=== PATIENT | male | born 1975 | race African-American/Black ===

== ENCOUNTER 2016-11-28 18:32 | Emergency (ER) | payer MEDICAID ==
[~2016-11-28] VITALS: Ht 167.6 cm; Wt 99.8 kg
[~2016-11-28 18:32] MED LIST: ADIPEX-P37.5 MG PO; DICLOFENAC SOD75 MG PO; LISINOPRIL10 MG PO; MAXALT-MLT10 MG PO; MEDROL 4MG. DOSE4 MG PO; METOPROLOL50 MG PO; PROTONIX 40MG T40 MG PO; TYLENOL W/CODEI1 TA2 PO
[2016-11-28] MEDS ORDERED: TRAZADONE HYDR100 MG PO (19:01)
[2016-11-28] MEDS ORDERED: TOPIRAMATE200 MG PO (19:01)
[2016-11-28] MEDS ORDERED: AMITRIPTYLINE 550 MG PO (19:02)
[2016-11-28] MEDS ORDERED: DULOXETINE60 MG PO (19:02)
[2016-11-28] MEDS ORDERED: VITAMIN D32000 IU PO (19:02)
[2016-11-28] MEDS ORDERED: HYDROXYZINE PAM50 MG PO (19:03)
--- OUTSIDE RECORDS SUMMARY | 2016-11-28 19:04 | External Medical Summary Rpt ---
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, Unavailable Unavailable [facility] Unavailable Unavailable [facility], [facility] Unavailable Unavailable [facility], [facility] Ernst Leblanc MD, Unavailable Unavailable Ernst HALL, PETTEBladimir Unavailable Unavailable JEFF SAVAGE Unavailable Unavailable SHOJAEI-JUAN Unavailable Unavailable JAL, SHOJAEI-JUAN JINA DEE Unavailable Unavailable STONE, STONE Unavailable Unavailable [facility], [facility] Unavailable Unavailable [facility] Unavailable Unavailable [facility], [facility], Unavailable Unavailable [facility] Unavailable [place] [facility], [facility] TIMMONS HUYEN, TIMMONS Unavailable Unavailable HUYEN LIZETT, LIZETT Unavailable Unavailable LIZETT CHR, LIZETT CHR Unavailable Unavailable Purpose Continuity of Care Document - 05-24-2012 through 2016 Problems Code Diagnosis DOS Provider Status [id number] PAIN IN 10-03-2016 [facility]EE [facility] R05 COUGH 08-14-2016 [facility] A86 UNSPECIFIED 07-10-2016 [facility] S G053 ENCEPHALITI 07-10-2016 [facility] MARION JONES CLASS ELSEW G932 BENIGN 07-10-2016 [facility] HYPERTENSIO N [id number] MYOPIA 07-10-2016 [facility] R51 HEADACHE 07-10-2016 [facility] E559 VITAMIN D 04-03-2016 [facility] UNSPECIFIED INTER [id number] ENCEPHALITI 04-03-2016 [facility] ENCEPHALOMY INTER ELITIS UNSPECIFIED G08 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 NOT PHYSICIANS SPECIFIED GROUP ACUTE OR CHRONIC R5383 OTHER 02-29-2016 [facility] FATIGUE [facility] [id number] PAIN IN 01-14-2016 [facility] RIGHT ELBOW PH[facility] GROUP R200 ANESTHESIA 01-14-2016 [facility] OF SKIN [facility] Z23 ENCOUNTER 01-14-2016 [facility] IMMUNIZATIO GROUP N Z5181 ENCOUNTER 12-17-2015 [place] THERAPEUTIC INC DRUG LEVEL MONITORING Z111 ENCOUNTER 12-15-2015 PSYCHIATRIC RESPIRATORY TUBERCULOSI S [id number] UNSPECIFIED 11-30-2015 [facility] SUPERFICIAL KERATITIS LEFT EYE G4733 OBSTRUCTIVE 11-22-2015 [facility] SLEEP PHYSICIANS APNEA ADULT GROUP PEDIATRIC R202 PARESTHESIA 11-22-2015 [facility] OF SKIN [facility] GROUP I669 OCCLUSION & 11-18-2015 [facility] UNSPEC[facility] INC CEREBRAL ARTERY K649 UNSPECIFIED 09-27-2015 [facility] HEMORRHOIDS GROUP R197 DIARRHEA 09-27-2015 [facility] UNSPECIFIED PHYSICIANS GROUP R079 CHEST PAIN 09-06-2015 [place] [facility]PEC[facility] M778 OTHER 08-26-2015 [facility] ENTHESOPATH PHYSICIANS IES NOT GROUP ELSEWHERE CLASSIFIED M7030 OTHER 08-20-2015 [facility] EL[facility] INC UNSPECIFIED ELBOW M7989 OTHER 08-20-2015 [place] SPECIFIED MEDICAL SOFT TISSUE IMAGING ASS DISORDERS R609 EDEMA 08-20-2015 [place] [facility]PEC[facility]IED [facility] 401.9 401.9 05-08-2013 [place] HYPERTENSIO [facility] 784.0 784.0 05-08-2013 [place] HEADACHE [facility] R07.9 CHEST PAIN, UNSPECIFIED R11.10 VOMITING, UNSPECIFIED R51 HEADACHE S50.00XA CONTUSION OF UNSPECIFIED ELBOW, INITIAL ENCOUNTER Allergies, Adverse Reactions, Alerts Type Allergy to substance Food Allergy Adverse Reaction to Substance Substance Reaction Severity VERSED Unknown Unknown Chocolate I-ITCHING Unknown Medications Na ND Rx Da Fi Fi Am Da Di Ph RX Ph St me C No te ll ll ou ys ag ar # ys at rm s nt no ma ic us Or Da si cy ia de te s n re d LI 68 07 08 90 90 00 HO Ac SI 18 -1 -0 .0 00 ME ti NO 00 2- 4- 00 06 TO ve [place] 51 20 20 09 WN [place] 90 17 17 05 -H [address] AR Z MA 20 CY -1 2. OF 5 MG CY NT TA HI B AN A ME 68 07 08 21 6 00 HO Ac TH 00 -0 -0 .0 00 ME ti YL 10 7- 4- 00 06 TO ve [place] 00 20 20 09 WN ED 50 17 17 03 NI 1 49 PH SO AR LO MA NE CY 4 OF MG CY DO NT SE HI PK AN A 00 06 07 30 30 00 HO Ac TA 53 -3 -2 .0 00 ME ti ND 63 0- 8- 00 06 TO ve N 79 20 20 07 WN D3 00 17 17 78 1 52 PH 2, AR 00 MA 0 CY UN IT OF SO CY FT NT GE HI L AN A PA 31 06 07 30 30 00 HO Ac NT 72 -3 -2 .0 00 ME ti OP 20 0- 8- 00 06 TO ve RA 71 20 20 07 WN ZO 39 17 17 78 LE 0 22 PH AR SO MA D CY DR OF 40 CY MG NT HI TA AN B A TR 50 06 07 30 30 00 HO Ac AZ 11 -3 -2 .0 00 ME ti OD 10 0- 8- 00 06 TO ve ON 43 20 20 08 WN E 40 17 17 44 10 2 30 PH 0 AR MG MA CY TA BL OF ET CY NT HI AN A AM 00 06 07 30 30 00 HO Ac IT 78 -3 -2 .0 00 ME ti RI 11 0- 8- 00 06 TO ve PT 48 20 20 08 WN YL 80 17 17 47 IN 1 69 PH E AR HC MA L CY 50 OF MG CY TA NT B HI AN A DU 68 06 07 30 30 00 HO Ac LO 00 -2 -1 .0 00 ME ti XE 10 0- 4- 00 06 TO ve TI 25 20 20 08 WN NE 70 17 17 47 4 67 PH HC AR L MA DR CY 60 OF MG CY NT CA HI P AN A TO 68 06 06 30 30 00 HO Ac PI 46 -0 -3 .0 00 ME ti RA 20 2- 0- 00 06 TO ve MA 11 20 20 08 WN TE 06 17 17 47 0 68 PH 20 AR 0 MA MG CY TA OF BL ET CY NT HI AN A PA 62 06 06 30 30 00 HO Ac NT 17 -0 -3 .0 00 ME ti OP 50 2- 0- 00 06 TO ve RA 61 20 20 07 WN ZO 74 17 17 78 LE 3 22 PH AR SO MA D CY DR OF 40 CY MG NT HI TA AN B A AM 00 05 06 30 30 00 HO Ac IT 78 -3 -2 .0 00 ME ti RI 11 1- 3- 00 06 TO ve PT 48 20 20 06 WN YL 80 17 17 62 IN 1 18 PH E AR HC MA L CY 50 OF MG CY TA NT B HI AN A TR 50 05 06 30 30 00 HO Ac AZ 11 -3 -2 .0 00 ME ti OD 10 1- 3- 00 06 TO ve ON 43 20 20 08 WN E 40 17 17 44 10 2 30 PH 0 AR MG MA CY TA BL OF ET CY NT HI AN A 00 05 06 30 30 00 HO Ac TA 53 -2 -2 .0 00 ME ti ND 63 5- 3- 00 06 TO ve N 79 20 20 07 WN D3 00 17 17 78 1 52 PH 2, AR 00 MA 0 CY UN IT OF SO CY FT NT GE HI L AN A DU 68 05 06 30 30 00 HO Ac LO 00 -1 -0 .0 00 ME ti XE 10 7- 9- 00 06 TO ve TI 25 20 20 08 WN NE 70 17 17 47 4 67 PH HC AR L MA DR CY 60 OF MG CY NT CA HI P AN A TO 68 05 06 30 30 00 HO Ac PI 46 -0 -0 .0 00 ME ti RA 20 9- 2- 00 06 TO ve MA 11 20 20 08 WN TE 06 17 17 47 0 68 PH 20 AR 0 MA MG CY TA OF BL ET CY NT HI AN A PA 62 05 06 30 30 00 HO Ac NT 17 -0 -0 .0 00 ME ti OP 50 9- 2- 00 06 TO ve RA 61 20 20 07 WN ZO 74 17 17 78 LE 3 22 PH AR SO MA D CY DR OF 40 CY MG NT HI TA AN B A ME 68 05 05 21 6 00 HO Ac TH 00 -0 -2 .0 00 ME ti YL 10 1- 6- 00 06 TO ve [place] 00 20 20 08 WN ED 50 17 17 61 NI 1 31 PH SO AR LO MA NE CY 4 OF MG CY DO NT SE HI PK AN A BE 69 05 05 30 10 00 HO Ac NZ 38 -0 -2 .0 00 ME ti ON 70 1- 6- 00 06 TO ve AT 12 20 20 08 WN AT 00 17 17 61 E 5 30 PH 20 AR 0 MA MG CY CA OF PS UL CY E NT HI AN A TR 50 05 05 30 30 00 HO Ac AZ 11 -0 -2 .0 00 ME ti OD 10 1- 6- 00 06 TO ve ON 43 20 20 08 WN E 40 17 17 44 10 2 30 PH 0 AR MG MA CY TA BL OF ET CY NT HI AN A AM 00 05 05 30 30 00 HO Ac IT 78 -0 -2 .0 00 ME ti RI 11 1- 6- 00 06 TO ve PT 48 20 20 06 WN YL 80 17 17 62 IN 1 18 PH E AR HC MA L CY 50 OF MG CY TA NT B HI AN A ME 57 04 05 18 90 00 HO Ac TO 23 -1 -0 0. 00 ME ti [place] 70 0- 5- 00 06 TO ve OL 10 20 20 0 08 WN OL 19 17 17 47 9 71 PH TA AR RT MA RA CY TE OF 50 CY MG NT HI TA AN B A LI 68 04 05 90 90 00 HO Ac SI 18 -1 -0 .0 00 ME ti NO 00 0- 5- 00 06 TO ve [place] 51 20 20 08 WN [place] 90 17 17 47 -H [address] AR Z MA 20 CY -1 2. OF 5 MG CY NT TA HI B AN A TO 68 04 05 30 30 00 HO Ac PI 46 -1 -0 .0 00 ME ti RA 20 0- 5- 00 06 TO ve MA 11 20 20 08 WN TE 06 17 17 47 0 68 PH 20 AR 0 MA MG CY TA OF BL ET CY NT HI AN A DU 68 04 05 30 30 00 HO Ac LO 00 -1 -0 .0 00 ME ti XE 10 1- 5- 00 06 TO ve TI 25 20 20 08 WN NE 70 17 17 47 4 67 PH HC AR L MA DR CY 60 OF MG CY NT CA HI P AN A PA 62 03 04 30 30 00 HO Ac NT 17 -3 -2 .0 00 ME ti OP 50 1- 8- 00 06 TO ve RA 61 20 20 07 WN ZO 74 17 17 78 LE 3 22 PH AR SO MA D CY DR OF 40 CY MG NT HI TA AN B A AM 00 03 04 30 30 00 HO Ac IT 78 -3 -2 .0 00 ME ti RI 11 1- 8- 00 06 TO ve PT 48 20 20 06 WN YL 80 17 17 62 IN 1 18 PH E AR HC MA L CY 50 OF MG CY TA NT B HI AN A TO 68 04 04 30 30 00 HO Ac PI 46 -0 -2 .0 00 ME ti RA 20 3- 8- 00 06 TO ve MA 10 20 20 08 WN TE 96 17 17 43 0 75 PH 10 AR 0 MA MG CY TA OF BL ET CY NT HI AN A TR 50 04 04 30 30 00 HO Ac AZ 11 -0 -2 .0 00 ME ti OD 10 4- 8- 00 06 TO ve ON 43 20 20 08 WN E 40 17 17 44 10 2 30 PH 0 AR MG MA CY TA BL OF ET CY NT HI AN A TR 50 02 03 30 30 00 HO Ac AZ 11 -2 -2 .0 00 ME ti OD 10 7- 4- 00 06 TO ve ON 43 20 20 08 WN E 40 17 17 22 10 2 12 PH 0 AR MG MA CY TA BL OF ET CY NT HI AN A VE 68 02 03 60 30 00 HO Ac NL 00 -2 -2 .0 00 ME ti AF 10 7- 4- 00 06 TO ve AX 15 20 20 08 WN IN 80 17 17 22 E 0 07 PH HC AR L MA 37 CY .5 OF MG CY TA NT BL HI ET AN A 00 02 03 30 30 00 HO Ac TA 53 -2 -2 .0 00 ME ti ND 63 7- 4- 00 06 TO ve N 79 20 20 07 WN D3 00 17 17 78 1 52 PH 2, AR 00 MA 0 CY UN IT OF SO CY FT NT GE HI L AN A DI 49 02 03 30 30 00 HO Ac CL 88 -1 -1 0. 00 ME ti OF 40 6- 7- 00 06 TO ve EN 93 20 20 0 06 WN AC 54 17 17 34 7 98 PH SO AR DI MA UM CY 1% OF GE CY L NT HI AN A PA 62 02 03 30 30 00 HO Ac NT 17 -1 -1 .0 00 ME ti OP 50 5- 0- 00 06 TO ve RA 61 20 20 07 WN ZO 74 17 17 78 LE 3 22 PH AR SO MA D CY DR OF 40 CY MG NT HI TA AN B A TO 68 02 03 30 30 00 HO Ac PI 46 -1 -1 .0 00 ME ti RA 20 5- 0- 00 06 TO ve MA 10 20 20 07 WN TE 96 17 17 65 0 75 PH 10 AR 0 MA MG CY TA OF BL ET CY NT HI AN A AM 00 02 03 30 30 00 HO Ac IT 78 -1 -1 .0 00 ME ti RI 11 5- 0- 00 06 TO ve PT 48 20 20 06 WN YL 80 17 17 62 IN 1 18 PH E AR HC MA L CY 50 OF MG CY TA NT B HI AN A TR 50 01 02 30 30 00 HO Ac AZ 11 -2 -2 .0 00 ME ti OD 10 6- 4- 00 06 TO ve ON 43 20 20 08 WN E 40 17 17 02 10 2 82 PH 0 AR MG MA CY TA BL OF ET CY NT HI AN A 00 01 02 30 30 00 HO Ac TA 53 -2 -2 .0 00 ME ti ND 63 6- 4- 00 06 TO ve N 79 20 20 07 WN D3 00 17 17 78 1 52 PH 2, AR 00 MA 0 CY UN IT OF SO CY FT NT GE HI L AN A VE 68 01 02 60 30 00 HO Ac NL 00 -2 -1 .0 00 ME ti AF 10 3- 7- 00 06 TO ve AX 15 20 20 07 WN IN 80 17 17 39 E 0 05 PH HC AR L MA 37 CY .5 OF MG CY TA NT BL HI ET AN A LI 68 01 02 90 90 00 HO Ac SI 18 -2 -1 .0 00 ME ti NO 00 3- 7- 00 06 TO ve [place] 51 20 20 07 WN IL 40 17 17 21 3 58 PH 10 AR MA MG CY TA OF BL ET CY NT HI AN A AM 00 01 02 30 30 00 HO Ac IT 78 -1 -0 .0 00 ME ti RI 11 1- 3- 00 06 TO ve PT 48 20 20 06 WN YL 80 17 17 62 IN 1 18 PH E AR HC MA L CY 50 OF MG CY TA NT B HI AN A PA 62 01 02 30 30 00 HO Ac NT 17 -1 -0 .0 00 ME ti OP 50 1- 3- 00 06 TO ve RA 61 20 20 07 WN ZO 74 17 17 78 LE 3 22 PH AR SO MA D CY DR OF 40 CY MG NT HI TA AN B A TR 50 12 30 30 00 HO Ac AZ 11 -3 -2 .0 00 ME ti OD 10 0- 7- 00 06 TO ve ON 43 20 20 07 WN E 40 16 17 39 10 2 09 PH 0 AR MG MA CY TA BL OF ET CY NT HI AN A TO 68 12 30 30 00 HO Ac PI 46 -3 -2 .0 00 ME ti RA 20 0- 7- 00 06 TO ve MA 10 20 20 07 WN TE 96 16 17 65 0 75 PH 10 AR 0 MA MG CY TA OF BL ET CY NT HI AN A 00 12 01 30 30 00 HO Ac TA 53 -1 -1 .0 00 ME ti ND 63 9- 3- 00 06 TO ve N 79 20 20 07 WN D3 00 16 17 78 1 52 PH 2, AR 00 MA 0 CY UN IT OF SO CY FT NT GE HI L AN A PA 62 12 01 30 30 00 HO Ac NT 17 -1 -1 .0 00 ME ti OP 50 6- 3- 00 06 TO ve RA 61 20 20 07 WN ZO 74 16 17 78 LE 3 22 PH AR SO MA D CY DR OF 40 CY MG NT HI TA AN B A AM 00 12 30 30 00 HO Ac IT 78 -1 -0 .0 00 ME ti RI 11 2- 9- 00 06 TO ve PT 48 20 20 06 WN YL 80 16 17 62 IN 1 18 PH E AR HC MA L CY 50 OF MG CY TA NT B HI AN A VE 68 12 01 60 30 00 HO Ac NL 00 -1 -0 .0 00 ME ti AF 10 2- 9- 00 06 TO ve AX 15 20 20 07 WN IN 80 16 17 39 E 0 05 PH HC AR L MA 37 CY .5 OF MG CY TA NT BL HI ET AN A SO 00 01 0 No DI 40 -2 UM 97 3- Lo 98 20 ng CH 30 14 er LO 9 RI Ac DE ti ve 0. 9% SO MARNI TI ON Sa 63 01 0 No li 80 -2 ne 70 3- Lo 10 20 ng Fl 07 14 er us 5 h Ac 10 ti ML ve Sy ri ng e KE 00 01 0 No TO 40 -2 RO 93 3- Lo LA 79 20 ng C 50 14 er 30 1 Ac MG ti /M ve L AL ON 00 01 0 No DA 64 -2 NS 16 3- Lo ET 08 20 ng RO 02 14 er N 5 HC Ac L ti 4 ve MG /2 ML AL DI 00 01 0 No PH 40 -2 EN 92 3- Lo HY [address] 03 14 er AM 1 IN Ac E ti 50 ve MG /M L SY RN G ME 00 01 0 No TO 40 -2 CL 93 3- Lo OP 41 20 ng RA 40 14 er ND 1 DE Ac ti 10 ve MG /2 ML AL Immunization Name Date Rout CVX Reac Dose Comm Prov Is Faci e tion ent ider Refu lity Give sed n HEPB 09-3 8 FRYM No [facility]H 0-20 AN PHYS VACC 16 EUG ICIA INE NS PED/ GROU ADOL P ESC 3 DOSE SCHE DULE IM HEPB 08-3 8 FRYM No BEBE 1-20 AN DANIELLA VACC 16 EUG INE [facility] PED/ RIAL ADOL ESC HOSP 3 ITAL DOSE SCHE DULE IM Vital Signs 05-08-2013 01:40 Name Value Interpretat Reference Comment ion Range BP 82 mm[Hg] Diastolic BP Systolic 140 mm[Hg] Heart 82 /min Rate/Pulse O2% 96 % Respiratory 18 /min Rate 05-08-2013 00:28 Name Value Interpretat Reference Comment ion Range BP 98 mm[Hg] Diastolic BP Systolic 151 mm[Hg] Heart 93 /min Rate/Pulse O2% 97 % Respiratory 18 /min Rate Results Labs Lab Lab Date Result Refere Interp Status Commen Order Detail nces retati t Range on Hemoglobin A1c in Blood (11-09-2016 08:24) Hemoglo 6.5 % 0.0% Normal complet bin A1c 017 - ed in 08:24 7.0% Blood COMPREHENSIVE METABOLIC PANEL (05-08-2013 00:13) Glucose 130 74-106 complet 014 mg/dL ed Bld-mCn 00:13 c BUN 10 7-18 complet Bld-mCn 014 mg/dL ed c 00:13 Creat 1.2 0.8-1.3 complet SerPl-m 014 mg/dL ed Cnc 00:13 Creat 119 50-200 complet Cl 014 ML/MIN ed predict 00:13 ed SerPl C-G-vRa te GFR/BSA 68 Greater complet .pred 014 ML/MIN than ed SerPl 00:13 60 Schwart z-vRate Sodium 139 136-145 complet SerPl-s 014 mmoL/L ed Cnc 00:13 Potassi 4.1 3.5-5.1 complet um 014 mmoL/L ed SerPl-s 00:13 Cnc Chlorid 101 98-107 complet e 014 mmoL/L ed SerPl-s 00:13 Cnc CO2 29 21.0-32 complet SerPl-s 014 mmoL/L .0 ed Cnc 00:13 Calcium 8.0 8.5-10. complet 014 mg/dL 1 ed SerPl-m 00:13 Cnc Prot 7.7 6.4-8.2 complet SerPl-m 014 gm/dL ed Cnc 00:13 Albumin 3.7 3.4-5.0 complet 014 gm/dL ed SerPl-m 00:13 Cnc Globuli 4.0 1.3-3.2 complet n 014 gm/dL ed Ser-mCn 00:13 c Albumin 0.9 UNK 1.1-1.8 complet /Glob 014 ed SerPl-m 00:13 Rto Bilirub 0.5 0.2-1.0 complet 014 mg/dL ed SerPl-m 00:13 Cnc AST 22 U/L 15-37 complet SerPl-c 014 ed Cnc 00:13 ALT 25 U/L 12-78 complet SerPl-c 014 ed Cnc 00:13 ALP 92 U/L 50-136 complet SerPl-c 014 ed Cnc 00:13 CBC with AUTO DIFF (05-08-2013 00:13) WBC # 05-08-2 10.2 4.8-10. complet Bld 014 K/MM3 8 ed Auto 00:13 RBC # 05-08-2 5.35 4.6-6.2 complet Bld 014 M/mm3 ed Auto 00:13 Hgb 05-08-2 15.0 14.1-18 complet Bld-mCn 014 g/dL .0 ed c 00:13 Hct Fr 2 45.2 % 42.0-52 complet Bld 014 .0 ed 00:13 MCV RBC 84.5 fl 82.2-97 complet 014 .8 ed 00:13 MCH RBC 2 28.1 pg 27-31.2 complet Qn 014 ed Auto 00:13 MEAN 2 33.2 31.8-35 complet CORPUSC 014 g/dl .4 ed ULAR 00:13 HGB CONC RDW RBC 05-08-2 14.8 % 11.5-17 complet Auto 014 .5 ed 00:13 Platele 05-08-2 302 142-424 complet t Bld 014 K/mm3 ed Ql 00:13 Manual MEAN 8.5 fl 7.4-10. complet PLATELE 014 4 ed T 00:13 VOLUME Granulo 05-08-2 55.8 % 37.0-80 complet cytes 014 .0 ed Fr Bld 00:13 Auto LYMPH % 23-2 37.8 % 10-50 complet 014 ed 00:13 Monocyt -23-2 3.8 % 1.7-9.3 complet es Fr 014 ed Bld 00:13 Auto Eosinop -23-2 1.9 % 0.1-12. complet hil Fr 014 0 ed Bld 00:13 Auto Basophi -23-2 0.7 % 0.1-2.0 complet ls Fr 014 ed Bld 00:13 Auto Granulo -23-2 5.7 1.3-8.0 complet cytes # 014 K/mm3 ed Bld 00:13 Auto Lymphoc -23-2 3.9 0.7-4.5 complet ytes Fr 014 K/mm3 ed Bld 00:13 Auto Monocyt -23-2 0.4 0.1-1.0 complet es # 014 K/mm3 ed Bld 00:13 Auto Eosinop -23-2 0.2 0.0-0.4 complet hil # 014 K/mm3 ed Bld 00:13 Auto Basophi 0.1 0-0.2 complet ls # 014 K/MM3 ed Bld 00:13 Auto COMPREHENSIVE METABOLIC PANEL CMP (07-15-2012 07:01) TOTAL 07-15- 0.4 0.20 - complet WILLIAM 013 mg/dl 1.0 ed 07:01 ALBUMIN 3.5 3.40 - complet 013 g/dl 5.0 ed 07:01 TOTAL 7.0 6.40 - complet PROTEIN 013 g/dl 8.20 ed 07:01 ALK 89 IU/L 50 - complet PHOS 013 136 ed 07:01 ALT 35 IU/L 30 - 65 complet (SGPT) 013 ed 07:01 AST 15 IU/L 15 - 37 complet (SGOT) 013 ed 07:01 04 If complet 013 patient ed 07:01 is Tena n, multipl y GFR by 1.120. Normal complet 013 Range: ed 07:01 60 Ml/min/ 1.73 sq meters GLOMERU complet 013 LAR ed 07:01 FILTRAT ION RATE INTERPR ETATION A/G 1.0 1.0 - complet RATIO 013 ratio 3.90 ed 07:01 GLOBULI 3.5 1.30 - complet N 013 g/dl 3.50 ed 07:01 CALCIUM 8.7 8.50 - complet 013 mg/dl 10.10 ed 07:01 GFR 60 complet 013 ml/min ed 07:01 AGE 04-01- 36 yrs complet 013 ed 07:01 CREATIN 1.2 0.60 - complet INE 013 mg/dl 1.30 ed 07:01 BUN 7 mg/dl 7 - 18 complet 013 ed 07:01 GLUCOSE 106 70 - complet 013 mg/dl 120 ed 07:01 ANION 10 5 - 15 complet GAP 013 mmol/L ed 07:01 TOTAL 29 21 - 32 complet CO2 013 mmol/L ed 07:01 POTASSI 4.0 3.50 - complet UM 013 mmol/L 5.10 ed 07:01 SODIUM 139 136 - complet 013 mmol/L 145 ed 07:01 CHLORID 104 98 - complet E 013 mmol/L 107 ed 07:01 *GFR complet 013 only ed 07:01 applies to adults over the age 18. BILIRUBIN DIRECT (07-15-2012 07:01) DIRECT 0.1 0.0 - complet WILLIAM 013 mg/dl 0.20 ed 07:01 CBC W DIFF AUTOMATED (07-15-2012 07:01) EO# 07-15- 0.12 0.00 - complet 013 K/uL 0.70 ed 07:01 NE# 2.76 2.00 - complet 013 K/uL 6.90 ed 07:01 MO# 0.27 0.00 - complet 013 K/uL 0.90 ed 07:01 LY# 2.16 0.60 - complet 013 K/uL 3.40 ed 07:01 BA% 0.90 % 0.00 - complet 013 2.50 ed 07:01 EO% 2.20 % 0.00 - complet 013 7.00 ed 07:01 NE% 51.6 % 37.0 - complet 013 80.0 ed 07:01 MO% 5.0 % 0.0 - complet 013 12.0 ed 07:01 LY% 40.3 % 10.0 - complet 013 50.0 ed 07:01 PLT 331 142 - complet 013 K/uL 424 ed 07:01 RDW 13.7 % 11.60 - complet 013 14.80 ed 07:01 MCHC 32.6 31.80 - complet 013 g/dL 35.40 ed 07:01 MCH 26.7 pg 27.0 - Below complet 013 31.20 low ed 07:01 normal MCV 82.0 fL 80.0 - complet 013 97.0 ed 07:01 HCT 44 % 37.70 - complet 013 53.70 ed 07:01 HGB 14.2 12.20 - complet 013 g/dL 18.10 ed 07:01 RBC 5.32 4.04 - complet 013 M/uL 6.13 ed 07:01 WBC 5.4 4.60 - complet 013 K/uL 10.20 ed 07:01 Manual NOT complet Diff 013 INDICAT ed 07:01 ED BA# 0.05 0.00 - complet 013 K/uL 0.20 ed 07:01 Comprehensive metabolic 1998 panel in Serum or Plasma (07-15-2012 07:01) Sodium 139 136 - complet [Moles/ 013 mmol/L 145 ed volume] 07:01 in Serum or Plasma Potassi 4.0 3.50 - complet um 013 mmol/L 5.10 ed [Moles/ 07:01 volume] in Serum or Plasma Chlorid 104 98 - complet e 013 mmol/L 107 ed [Moles/ 07:01 volume] in Serum or Plasma TOTAL 29 21 - 32 complet CO2 013 mmol/L ed 07:01 ANION 10 5 - 15 complet GAP 013 mmol/L ed 07:01 Glucose 106 70 - complet 013 mg/dl 120 ed [Mass/v 07:01 olume] in Serum or Plasma Urea 7 mg/dl 7 - 18 complet nitroge 013 ed n 07:01 [Mass/v olume] in Serum or Plasma Creatin 1.2 0.60 - complet ine 013 mg/dl 1.30 ed [Mass/v 07:01 olume] in Serum or Plasma AGE 04 36 yrs complet 013 ed 07:01 GFR 60 complet 013 ml/min ed 07:01 Calcium 8.7 8.50 - complet 013 mg/dl 10.10 ed [Mass/v 07:01 olume] in Serum or Plasma Bilirub 0.4 0.20 - complet in.tota 013 mg/dl 1.0 ed l 07:01 [Mass/v olume] in Serum or Plasma Asparta 15 IU/L 15 - 37 complet te 013 ed aminotr 07:01 ansfera se [Enzyma tic activit y/volum e] in Serum or Plasma Alanine 35 IU/L 30 - 65 complet 013 ed aminotr 07:01 ansfera se [Enzyma tic activit y/volum e] in Serum or Plasma Alkalin 89 IU/L 50 - complet e 013 136 ed phospha 07:01 tase [Enzyma tic activit y/volum e] in Serum or Plasma Protein 7.0 6.40 - complet 013 g/dl 8.20 ed [Mass/v 07:01 olume] in Serum or Plasma Albumin 3.5 3.40 - complet 013 g/dl 5.0 ed [Mass/v 07:01 olume] in Serum or Plasma GLOBULI 3.5 1.30 - complet N 013 g/dl 3.50 ed 07:01 A/G 1.0 1.0 - complet RATIO 013 ratio 3.90 ed 07:01 GLOMERU complet 013 LAR ed 07:01 FILTRAT ION RATE INTERPR ETATION Normal complet 013 Range: ed 07:01 60 Ml/min/ 1.73 sq meters If complet 013 patient ed 07:01 is Tena n, multipl y GFR by 1.120. *GFR complet 013 only ed 07:01 applies to adults over the age 18. Bilirubin.direct [Mass/volume] in Serum or Plasma (07-15-2012 07:01) Bilirub 0.1 0.0 - complet in.dire 013 mg/dl 0.[address] 07:01 [Mass/v olume] in Serum or Plasma Urinalysis complete panel in Urine (07-15-2012 07:01) Color LT. NL: complet of 013 YELL Negativ ed Urine 07:01 e Appeara CLEAR NL: complet nce of 013 Negativ ed Urine 07:01 e Glucose NEG NL: complet 013 Negativ ed [Mass/v 07:01 e olume] in Urine by Test strip Bilirub NEG NL: complet in 013 Negativ ed [Presen 07:01 e ce] in Urine by Test strip Ketones NEG NL: complet 013 Negativ ed [Presen 07:01 e ce] in Serum or Plasma Specifi >=1.030 NL: complet c 013 1.00 >= ed gravity 07:01 1.030 of Urine Hemoglo NEG NL: complet bin 013 Negativ ed [Presen 07:01 e ce] in Urine by Test strip pH of 6.0 NL: complet Urine 013 ed by Test 07:01 strip Protein NEG NL: complet 013 Negativ ed [Presen 07:01 e ce] in Urine by Test strip Urobili 0.2 NL: 0.2 complet nogen 013 - 1.0 ed [Mass/v 07:01 olume] in Urine by Test strip Nitrite NEG NL: complet 013 Negativ ed [Presen 07:01 e ce] in Urine by Test strip Leukocy NEG NL: complet chito 013 Negativ ed [#/volu 07:01 e me] in Blood by Automat ed count MICROSC See complet OPIC 013 ed 07:01 Leukocy NEGATIV NL: complet chito 013 E NEGATIV ed [#/volu 07:01 E me] in Blood by Automat ed count Erythro NEGATIV NL: complet cytes 013 E NEGATIV ed [#/volu 07:01 E me] in Blood by Automat ed count Epithel NEGATIV NL: complet ial 013 E NEGATIV ed cells 07:01 E [#/area ] in Urine sedimen t by Microsc opy high power field Bacteri NEGATIV NL: complet a 013 E NEGATIV ed [#/area 07:01 E ] in Urine sedimen t by Microsc opy high power field Mucus NEGATIV NL: complet [Presen 013 E NEGATIV ed ce] in 07:01 E Urine sedimen t by Light microsc opy Yeast NEGATIV NL: complet [Presen 013 E NEGATIV ed ce] in 07:01 E Unspeci fied specime n by Wet prepara tion Casts NEGATIV NL: complet 013 E NEGATIV ed 07:01 E Crystal NEGATIV NL: complet s 013 E NEGATIV ed [type] 07:01 E in Urine sedimen t by Light microsc opy METH OF C CATCH complet DIANE 013 ed 07:01 CULTURE NOT complet SETUP 013 INDIC ed 07:01 CBC W DIFF AUTOMATED (07-15-2012 07:01) Leukocy 5.4 4.60 - complet chito 013 K/uL 10.20 ed [#/volu 07:01 me] in Blood by Automat ed count Erythro 5.32 4.04 - complet cytes 013 M/uL 6.13 ed [#/volu 07:01 me] in Blood by Automat ed count Hemoglo 14.2 12.20 - complet bin 013 g/dL 18.10 ed [Mass/v 07:01 olume] in Blood Hematoc 44 % 37.70 - complet rit 013 53.70 ed [Volume 07:01 Fractio n] of Blood by Automat ed count Erythro 82.0 fL 80.0 - complet cyte 013 97.0 ed mean 07:01 corpusc ular volume [Entiti c volume] by Automat ed count Erythro 26.7 pg 27.0 - Low complet cyte 013 31.20 ed mean 07:01 corpusc ular hemoglo bin [Entiti c mass] by Automat ed count Erythro 32.6 31.80 - complet cyte 013 g/dL 35.40 ed mean 07:01 corpusc ular hemoglo bin concent ration [Mass/v olume] by Automat ed count Erythro 13.7 % 11.60 - complet cyte 013 14.80 ed distrib 07:01 ution width [Ratio] by Automat ed count Platele 331 142 - complet ts 013 K/uL 424 ed [#/volu 07:01 me] in Blood by Automat ed count Lymphoc 40.3 % 10.0 - complet ytes/10 013 50.0 ed 0 07:01 leukocy chito in Blood by Automat ed count Monocyt 5.0 % 0.0 - complet es/100 013 12.0 ed leukocy 07:01 chito in Blood by Automat ed count Neutrop 51.6 % 37.0 - complet hils.ba 013 80.0 ed nd 07:01 form/10 0 leukocy chito in Blood by Manual count Eosinop 2.20 % 0.00 - complet hils/10 013 7.00 ed 0 07:01 leukocy chito in Blood by Automat ed count Basophi 0.90 % 0.00 - complet ls/100 013 2.50 ed leukocy 07:01 chito in Blood by Automat ed count Lymphoc 2.16 0.60 - complet ytes/10 013 K/uL 3.40 ed 0 07:01 leukocy chito in Blood by Automat ed count Monocyt 0.27 0.00 - complet es/100 013 K/uL 0.90 ed leukocy 07:01 chito in Blood by Automat ed count Neutrop 2.76 2.00 - complet hils.ba 013 K/uL 6.90 ed nd 07:01 form/10 0 leukocy chito in Blood by Manual count Eosinop 0.12 0.00 - complet hils/10 013 K/uL 0.70 ed 0 07:01 leukocy chito in Blood by Automat ed count Basophi 0.05 0.00 - complet ls/100 013 K/uL 0.20 ed leukocy 07:01 chito in Blood by Automat ed count Manual NOT complet Diff 013 INDICAT ed 07:01 ED Procedures Procedure DOS Code Location Performer Comment ARTHROCEN [facility] STONE TESIS 7 PHYSICIAN ASPIR&/IN S GROUP J MAJOR JT/BURSA W/O US VISUAL 77735 [facility] FIELD XM 7 MEDICAL UNI/BI SERV W/INTERP FOUNDATIO EXTENDED N EXAM SENSORMOT 30699 [facility] LE[facility] OR XM 7 MEDICAL W/DISPENSING AND MEASURING OPTICIAN SERV GUILLERMO FOUNDATIO OCULAR N DEVIJ W/I&R SPX BLOOD 17553 [facility] 6 [facility] COMPLETE INC INC AUTO&AUTO DIFRNTL WBC INJECTION J0696 [facility] DENIA 6 PHYSICIAN FATUMA CEFTRIAXO S GROUP NE SODIUM PER 250 MG THERAPEUT 15983 [facility] IC 6 PHYSICIAN PHYSICIAN PROPHYLAC S GROUP S GROUP TIC/DX INJECTION SUBQ/IM COLLECTIO 16333 [facility] N VENOUS 6 [facility] BLOOD INC INC VENIPUNCT URE COMPREHEN 97361 [facility] RE[facility] SIVE 6 [facility] METABOLIC INC INC PANEL IM ADM 83863 [facility] FRYMAN PRQ ID 6 PHYSICIAN EUG SUBQ/IM S GROUP NJXS [address] [facility] FRYMAN VACCINE 6 PHYSICIAN EUG PED/ADOLE S GROUP SC 3 DOSE SCHEDULE IM PROTHROMB 08172 [facility] IN TIME 6 [facility] INC INC SKIN TEST 03943 GAIL LYYMDANICA 6 [facility] SIS INTRADERM AL HEPB 21451 GAIL FRYMAN VACCINE 6 [facility] SC 3 DOSE SCHEDULE IM IM ADM 93902 AGIL LYYMDANICA PRQ ID 6 [facility]IM [facility] NJXS 1 VACCINE PROTHROMB 37869 [facility] IN TIME 6 [facility] INC INC BLOOD 36279 [facility] COUNT 6 [facility] COMPLETE INC INC AUTO&AUTO DIFRNTL WBC COMPREHEN 01459 [facility] SIVE 6 [facility] [place] [address] [facility] RE[facility] THYROID 6 [facility] STIMULATI INC INC NG HORMONE TSH PROTHROMB 57472 [facility] IN TIME 6 [facility] INC INC PROTHROMB 28492 [facility] IN TIME 6 [facility] INC INC BLOOD 93734 [facility] COUNT 6 [facility] COMPLETE INC INC AUTO&AUTO DIFRNTL WBC COMPREHEN 33846 [facility] SIVE 6 [facility] METABOLIC INC INC PANEL COLLECTIO 98663 [facility] N VENOUS 6 [facility] BLOOD INC INC VENIPUNCT URE PROTHROMB 48030 [facility] RE[facility] IN TIME 6 [facility] INC INC MYOCARDIA 82874 [facility] RE[facility] L SPECT 6 [facility] MULTIPLE INC INC STUDIES MYOCARDIA 66494 [place] PADILLA ALL L 6 MEDICAL PERFUSION IMAGING PLANAR ASS MULTIPLE STUDIES CV STRS 32942 GAILRAFAEL IVEY TST 6 [facility] RX CONT P ECG W/O I&R CV STRS 63737 [facility] TST 6 [facility] XERS&/OR INC INC RX CONT ECG TRCG ONLY COLLECTIO 73072 [facility] N VENOUS 6 [facility] BLOOD INC INC VENIPUNCT URE BASIC 35995 [facility] METABOLIC 6 [facility] PANEL INC INC CALCIUM TOTAL CV STRS 80468 GAIL IVEY TST 6 [facility] RX CONT P ECG I&R ONLY PROTHROMB 29110 [facility] RE[facility] IN TIME 6 [facility] INC INC PROTHROMB 93292 [facility] IN TIME 6 [facility] INC INC PROTHROMB 44606 GA[facility] RE[facility] IN TIME 6 [facility] INC INC MRI ANY 73295 [place] VALERIE DIANA JT UPPER 6 MEDICAL EXTREMITY IMAGING W/O ASS CONTRAST MATRL COLLECTIO 19336 GAIL GAIL N VENOUS 6 [facility] BLOOD INC INC VENIPUNCT URE PROTHROMB 07034 [facility] RE[facility] IN TIME 6 [facility] INC INC RADEX 29489 [facility] ELBOW 6 [facility] COMPLETE INC INC MINIMUM 3 VIEWS Encounters Encounter Start End Date Code Location Performer Type Date OFFICE 17660 [facility] STONE OUTPATIEN 7 7 PHYSICIAN T VISIT S GROUP [address] [facility] STONE OUTPATIEN 7 7 PHYSICIAN T VISIT S GROUP 15 MINUTES OFFICE 43870 [facility] CONSULTAT 7 7 MEDICAL ION SERV NEW/ESTAB FOUNDATIO PATIENT N 60 MIN OFFICE 08167 [facility] LIZETT OUTPATIEN 6 6 Y OF T VISIT [place] 25 INTER MINUTES OFFICE 95758 [facility] OUTPATIEN 6 6 [facility] T VISIT 5 E MINUTES HOSPITALS OFFICE 87018 EMANUEL MURO OUTPATIEN 6 6 MEDICAL T VISIT SERV 25 FOUNDATIO MINUTES N HOSPITAL [facility] - 6 6 [facility] OUTPATIEN E [facility] GA[facility] - 6 6 [facility] OUTPATIEN [facility] T OFFICE 84376 [facility] OUTPATIEN 6 6 PHYSICIAN FATUMA T VISIT S GROUP 25 MINUTES HOSPITAL GAIL - 6 6 [facility] OUTPATIEN INC T OFFICE 36783 [facility] BRAZORIA OUTPATIEN 6 6 T VISIT 10 MINUTES OFFICE 31000 EMANUEL TIMMONS OUTPATIEN 6 6 MEDICAL HUYEN T VISIT SERV 25 FOUNDATIO MINUTES N OFFICE 35229 [facility] OUTPATIEN 6 6 Y T VISIT 5 [facility]PITAL [facility] UN[facility]ERS[facility] - 6 6 Y OUTPATIEN HOSPITAL T OFFICE 91652 [facility] BRENDAJAEI-M OUTPATIEN 6 6 PHYSICIAN OGHADDAM T NEW 45 S GROUP JAL [facility] GAIL - 6 6 [facility] OUTPATIEN INC T OFFICE 48103 [facility] OUTPATIEN 6 6 PHYSICIAN T VISIT S GROUP 15 [facility] GAIL - 6 6 [facility] OUTPATIEN INC [facility] GAIL - 6 6 [facility] OUTPATIEN INC T OFFICE 12088 [facility] OUTPATIEN 6 6 Y OF T VISIT [place] 25 INTER MINUTES HOSPITAL GAIL - 6 6 [facility] OUTPATIEN INC T OFFICE 43993 [facility] JEFF GARLAND CONSULTAT 6 6 PHYSICIAN ION S GROUP NEW/ESTAB PATIENT 40 MIN OFFICE 49601 GA[facility] OUTPATIEN 6 6 [facility] T VISIT 5 INC MINUTES HOSPITAL GAIL - 6 6 [facility] OUTPATIEN [facility] GAIL - 6 6 [facility] OUTPATIEN INC T OFFICE 09832 [facility] OUTPATIEN 6 6 [facility] T VISIT INC [address]ES [address] [facility] MARQUIS OUTPATIEN 6 6 PHYSICIAN MANUEL T VISIT S GROUP TONNY SIERRA 25 MINUTES HOSPITAL GAIL - 6 6 [facility] OUTPATIEN INC [facility]OS[facility] GAIL - 6 6 [facility] OUTPATIEN INC T OFFICE [address] [facility] PETTEY OUTPATIEN 6 6 PHYSICIAN JAM T VISIT S GROUP 15 MINUTES HOSPITAL GAIL - 6 6 [facility] OUTPATIEN [facility] GAIL - 6 6 [facility] OUTPATIEN INC [facility]OSPITAL GAIL - 6 6 [facility] OUTPATIEN [facility] GAIL - 6 6 [facility] OUTPATIEN INC T OFFICE 511[address] [facility] PETTEY OUTPATIEN 6 6 PHYSICIAN JAM T VISIT S GROUP 25 MINUTES Emergency JENIFER Leblanc MD (ER) 4 00:47 4 01:41 [facility]
--- OUTSIDE RECORDS SUMMARY | 2016-11-28 19:04 | External Medical Summary Rpt ---
Author Author , JAYLA DICKERSON Address Unknown Phone Care Team Providers Care Bran Mixer Name Role Phone BESSON LIZZETTE, BESSON Unavailable Unavailable LIZZETTE PADILLA ALL, PADILLA ALL Unavailable Unavailable MARQUIS JACKSON PA-C Unavailable Unavailable MARQUIS SIERRA PA-C FRYMAN EUG, FRYMAN Unavailable Unavailable EUG DENIA FATUMA, DENIA Unavailable Unavailable FATUMA [facility] Unavailable Unavailable INC, [facility] Unavailable [facility] ALLISON, ALLISON Unavailable Unavailable ALLISON, ALLISON Unavailable Unavailable [facility], Unavailable Unavailable [facility] Unavailable Unavailable [facility], [facility] Un[facility] Unavailable [facility], [facility] Ernst Leblanc MD, Unavailable Unavailable Ernst HALL, PETTEBladimir Unavailable Unavailable JEFF SAVAGE Unavailable Unavailable SHOJAEI-JUAN Unavailable Unavailable JAL, SHOJAEI-JUAN JINA DEE Unavailable Unavailable STONE, STONE Unavailable Unavailable LU, LU Unavailable Unavailable [facility] Unavailable Unavailable [facility], [facility], Unavailable Unavailable [facility] Unavailable [place] INTER, [facility] INTER TIMMONS HUYEN, TIMMONS Unavailable Unavailable HUYEN LIZETT, LIZETT Unavailable Unavailable LIZETT CHR, LIZETT CHR Unavailable Unavailable Purpose Continuity of Care Document - 05-24-2012 through 2016 Problems Code Diagnosis DOS Provider Status [id number] PAIN IN 10-03-2016 [facility] LEFT KNEE PHYSICIANS GROUP R05 COUGH 08-14-2016 [facility] A86 UNSPECIFIED 07-10-2016 [facility] S G053 ENCEPHALITI 07-10-2016 [facility] ENCEPHALOMY [facility] MARION JONES CLASS ELSEW G932 BENIGN 07-10-2016 [facility] INTRACRANIA [facility] L [facility] HYPERTENSIO N H5213 MYOPIA 07-10-2016 [facility] R51 HEADACHE 07-10-2016 [facility] E559 VITAMIN D 04-03-2016 [facility] UNSPECIFIED INTER G0490 ENCEPHALITI 04-03-2016 [facility] ENCEPHALOMY INTER ELITIS UNSPECIFIED 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-28-2016 [facility] CURRENT USE SERV OF FOUNDATION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 NTS Z8661 PERSONAL 03-28-2016 [facility] HISTORY SERV INFECTIONS [facility] CENTRAL NERV SYSTEM J40 BRONCHITIS 02-29-2016 [facility] NOT PHYSICIANS SPECIFIED GROUP ACUTE OR CHRONIC R5383 OTHER 02-29-2016 [facility] FATIGUE PHYSICIANS GROUP R70853 PAIN IN 01-14-2016 [facility] RIGHT ELBOW PHYSICIANS GROUP R200 ANESTHESIA 01-14-2016 [facility] OF SKIN PHYSICIANS GROUP Z23 ENCOUNTER 01-14-2016 [facility] FOR PHYSICIANS IMMUNIZATIO GROUP N Z5181 ENCOUNTER 12-17-2015 [facility] THERAPEUTIC INC DRUG LEVEL MONITORING Z111 ENCOUNTER 12-15-2015 [facility] RESPIRATORY TUBERCULOSI S [id number] UNSPECIFIED 11-30-2015 [facility] SUPERFICIAL KERATITIS LEFT EYE G4733 OBSTRUCTIVE 11-22-2015 [facility] SLEEP PHYSICIANS APNEA ADULT GROUP PEDIATRIC R202 PARESTHESIA 11-22-2015 [facility] OF SKIN PHYSICIANS GROUP I669 OCCLUSION & 11-18-2015 [facility] ST[facility]IS [facility] UNSPECIFIED INC CEREBRAL ARTERY K649 UNSPECIFIED 09-27-2015 [facility] PHYSICIANS HEMORRHOIDS GROUP R197 DIARRHEA 09-27-2015 [facility] UNSPECIFIED PHYSICIANS GROUP R079 CHEST PAIN 09-06-2015 [place] UNSPECIFIED [facility] M778 OTHER 08-26-2015 [facility] ENTHESOPATH PHYSICIANS IES NOT GROUP ELSEWHERE CLASSIFIED M7030 OTHER 08-20-2015 [facility] BURSITIS OF [facility] HOS[facility] ELBOW INC UNSPECIFIED ELBOW M7989 OTHER 08-20-2015 [place] SPECIFIED MEDICAL SOFT TISSUE IMAGING ASS DISORDERS R609 EDEMA 08-20-2015 [place] UNSPECIFIED [facility]ICAL IMAGING ASS 401.9 401.9 05-08-2013 [place] HYPERTENSIO [facility] 784.0 784.0 05-08-2013 [place] HEADACHE [facility] R07.9 CHEST PAIN, UNSPECIFIED R11.10 VOMITING, UNSPECIFIED [...] 00 2- 4- 00 06 TO ve IA 51 20 20 09 WN IL 90 17 17 05 -H [address] AR Z MA 20 CY -1 2. OF 5 MG CY NT TA HI B AN A ME 68 07 08 21 6 00 HO Ac TH 00 -0 -0 .0 00 ME ti YL 10 7- 4- 00 06 TO ve IA 00 20 20 09 WN ED 50 17 17 03 NI 1 49 PH SO AR LO MA NE CY 4 OF MG CY DO NT SE HI PK AN A 00 06 07 30 30 00 HO Ac TA 53 -3 -2 .0 00 ME ti PR 63 0- 8- 00 06 TO ve [...] 53 -2 -2 .0 00 ME ti PR 63 5- 3- 00 06 TO ve [...] 10 1- 6- 00 06 TO ve IA 00 20 20 08 WN ED 50 [...] 23 -1 -0 0. 00 ME ti IA 70 0- 5- 00 06 TO ve [...] 00 0- 5- 00 06 TO ve IA 51 20 20 08 WN IL 90 [...] 53 -2 -2 .0 00 ME ti PR 63 7- 4- 00 06 TO ve [...] 53 -2 -2 .0 00 ME ti PR 63 6- 4- 00 06 TO ve [...] 00 3- 7- 00 06 TO ve IA 51 20 20 07 WN IL 40 [...] 53 -1 -1 .0 00 ME ti PR 63 9- 3- 00 06 TO ve [...] 41 20 ng RA 40 14 er PR 1 DE Ac ti 10 ve MG [...] Procedure DOS Code Location Performer Comment ARTHROCEN [facility] STONE TESIS 7 PHYSICIAN ASPIR&/IN S GROUP J MAJOR JT/BURSA W/O US VISUAL 11099 [facility] FIELD XM 7 MEDICAL UNI/BI SERV W/INTERP FOUNDATIO EXTENDED N EXAM SENSORMOT 74993 E[facility] LEIGH OR XM 7 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 GUILLERMO FOUNDATIO OCULAR N DEVIJ W/I&R SPX BLOOD 78974 [facility] COUNT 6 [facility] COMPLETE INC INC AUTO&AUTO DIFRNTL WBC INJECTION J0696 [facility] DENIA 6 PHYSICIAN FATUMA CEFTRIAXO S GROUP NE SODIUM PER 250 MG THERAPEUT 28819 [facility] IC 6 PHYSICIAN PHYSICIAN PROPHYLAC S GROUP S GROUP TIC/DX INJECTION SUBQ/IM COLLECTIO 04260 [facility] N VENOUS 6 [facility] BLOOD INC INC VENIPUNCT URE COMPREHEN 93184 [facility] RE[facility] SIVE 6 [facility] METABOLIC INC INC PANEL IM ADM 67181 [facility] FRYMAN PRQ ID 6 PHYSICIAN EUG SUBQ/IM S GROUP NJXS 1 VACCINE HEPB 93690 [facility] FRYMAN VACCINE 6 PHYSICIAN EUG PED/ADOLE S GROUP SC 3 DOSE SCHEDULE IM PROTHROMB 85110 [facility] IN TIME 6 [facility] INC INC SKIN TEST 46107 [facility] LYYMDANICA 6 [facility] SIS INTRADERM AL HEPB 40256 GAIL FRYMAN VACCINE 6 [facility] SC 3 DOSE SCHEDULE IM IM ADM 33326 GAIL LYYMDANICA PRQ ID 6 [facility] SUBQ/IM HOSPITAL NJXS 1 VACCINE PROTHROMB 59050 [facility] RE[facility] IN TIME 6 [facility] INC INC BLOOD 20133 [facility] RE[facility] COUNT 6 [facility] COMPLETE INC INC AUTO&AUTO DIFRNTL WBC COMPREHEN 03927 [facility] RE[facility] SIVE 6 [facility] [place] [address] [facility] RE[facility] THYROID 6 [facility] STIMULATI INC INC NG HORMONE TSH PROTHROMB 49153 [facility] RE[facility] IN TIME 6 [facility] INC INC PROTHROMB 73322 [facility] IN TIME 6 [facility] INC INC BLOOD 66820 [facility] RE[facility] COUNT 6 [facility] COMPLETE INC INC AUTO&AUTO DIFRNTL WBC COMPREHEN 15871 [facility] RE[facility] SIVE 6 [facility] METABOLIC INC INC PANEL COLLECTIO 34737 [facility] RE[facility] N VENOUS 6 [facility] BLOOD INC INC VENIPUNCT URE PROTHROMB 30071 [facility] RE[facility] IN TIME 6 [facility] INC INC MYOCARDIA 37280 [facility] L SPECT 6 [facility] MULTIPLE INC INC STUDIES MYOCARDIA 77354 [place] PADILLA ALL L 6 MEDICAL PERFUSION IMAGING PLANAR ASS MULTIPLE STUDIES CV STRS 46306 GAILRAFAEL IVEY TST 6 [facility] RX CONT P ECG W/O I&R CV STRS 08486 [facility] TST 6 [facility] XERS&/OR INC INC RX CONT ECG TRCG ONLY COLLECTIO 59553 [facility] N VENOUS 6 [facility] BLOOD INC INC VENIPUNCT URE BASIC 64452 [facility] METABOLIC 6 [facility] PANEL INC INC CALCIUM TOTAL CV STRS 01614 GAIL IEVY TST 6 [facility] RX CONT P ECG I&R ONLY PROTHROMB 97579 [facility] IN TIME 6 [facility] INC INC PROTHROMB 83139 GA[facility]YNOLDS IN TIME 6 [facility] INC INC PROTHROMB 04030 [facility]YNOLDS IN TIME 6 [facility] INC INC MRI ANY 42060 [place] VALERIE DIANA JT UPPER 6 MEDICAL EXTREMITY IMAGING W/O ASS CONTRAST MATRL COLLECTIO 20752 GAIL GAIL N VENOUS 6 [facility] BLOOD INC INC VENIPUNCT URE PROTHROMB 91672 [facility] IN TIME 6 [facility] INC INC RADEX 63523 [facility] ELBOW 6 [facility] COMPLETE INC INC MINIMUM 3 VIEWS Encounters Encounter Start End Date Code Location Performer Type Date OFFICE 38921 [facility] STONE OUTPATIEN 7 7 PHYSICIAN T VISIT S GROUP 25 MINUTES OFFICE 80890 [facility] STONE OUTPATIEN 7 7 PHYSICIAN T VISIT S GROUP 15 MINUTES OFFICE 66753 [facility] LE[facility] CONSULTAT 7 7 MEDICAL ION SERV NEW/ESTAB FOUNDATIO PATIENT N 60 MIN OFFICE 90048 [facility] LIZETT OUTPATIEN 6 6 Y OF T VISIT [place] 25 INTER MINUTES OFFICE 52398 [facility] OUTPATIEN 6 6 [facility] T VISIT 5 E MINUTES HOSPITALS OFFICE 36124 EMANUEL MURO OUTPATIEN 6 6 MEDICAL T VISIT SERV 25 FOUNDATIO MINUTES N HOSPITAL [facility] - 6 [facility] - 6 6 [facility] OUTPATIEN [facility] T OFFICE 26098 [facility] OUTPATIEN 6 6 PHYSICIAN FATUMA T VISIT S GROUP 25 MINUTES HOSPITAL GAIL - 6 6 [facility] OUTPATIEN INC T OFFICE 19120 [facility] ADA[facility] OUTPATIEN 6 6 T VISIT 10 MINUTES OFFICE 48420 EMANUEL TIMMONS OUTPATIEN 6 6 MEDICAL HUYEN T VISIT SERV 25 FOUNDATIO MINUTES N OFFICE 05585 [facility] OUTPATIEN 6 6 Y T VISIT 5 HOSPITAL [facility] - 6 6 Y OUTPATIEN HOSPITAL T OFFICE 68107 [facility] BRENDAJAEI-M OUTPATIEN 6 6 PHYSICIAN OGHADDAM T NEW 45 S GROUP JAL [facility] GAIL - 6 6 [facility] OUTPATIEN INC T OFFICE 79304 [facility] OUTPATIEN 6 6 PHYSICIAN T VISIT S GROUP 15 [facility] GAIL - 6 6 [facility] OUTPATIEN INC [facility] GAIL - 6 6 [facility] OUTPATIEN INC T OFFICE 26554 [facility] OUTPATIEN 6 6 Y OF T VISIT [place] 25 INTER MINUTES HOSPITAL GAIL - 6 6 [facility] OUTPATIEN INC T OFFICE 88599 [facility] JEFF GARLAND CONSULTAT 6 6 PHYSICIAN ION S GROUP NEW/ESTAB PATIENT 40 MIN OFFICE 70760 [facility] OUTPATIEN 6 6 [facility] T VISIT 5 INC MINUTES HOSPITAL GAIL - 6 6 [facility] OUTPATIEN INC [facility] GAIL - 6 6 [facility] OUTPATIEN INC T OFFICE 09047 [facility] OUTPATIEN 6 6 [facility] T VISIT INC 10 MINUTES OFFICE 61244 [facility] MARQUIS OUTPATIEN 6 6 PHYSICIAN MANUEL T VISIT S GROUP TONNY SIERRA 25 MINUTES HOSPITAL GAIL - 6 6 [facility] OUTPATIEN [facility] GA[facility] - 6 6 [facility] OUTPATIEN INC T OFFICE 52147 [facility] PETTEY OUTPATIEN 6 6 PHYSICIAN JAM T VISIT S GROUP 15 MINUTES HOSPITAL GAIL - 6 6 [facility] OUTPATIEN INC [facility] GAIL - 6 6 [facility] OUTPATIEN INC [facility] GAIL - 6 6 [facility] OUTPATIEN INC [facility] GAIL - 6 6 [facility] OUTPATIEN INC T OFFICE 99005 [facility] PETTEY OUTPATIEN 6 6 PHYSICIAN JAM T VISIT S GROUP 25 MINUTES Emergency JENIFER Leblanc MD (ER) 4 00:47 4 01:41 [facility]
[2016-11-28 19:07] LABS: HEMOGLOBIN 13.1 g/dL (14.1-18.0); LYMPH % 39.6 % (10-50)
--- OUTSIDE RECORDS SUMMARY | 2016-11-28 19:07 | External Medical Summary Rpt ---
Author Author , JAYLA DICKERSON Address Unknown Phone [email or web address] Care Team Providers Care Cycle Counter Name Role Phone UCHE YOO Unavailable Unavailable LIZZETTE PADILLA ALL, PADILLA ALL Unavailable Unavailable MARQUIS JACKSON PA-C Unavailable Unavailable MARQUIS SIERRA PA-C RIGO FRYMAN EUG, FRYMAN Unavailable Unavailable EUG DENIA FATUMA, DENIA Unavailable Unavailable FAT[facility] Unavailable Unavailable INC, [facility] Unavailable Unavailable [facility], [facility] ALLISON, ALLISON Unavailable Unavailable ALLISON, ALLISON Unavailable Unavailable [facility], Unavailable Unavailable [facility] Unavailable Unavailable [facility], [facility] PETTEY JAM, PETTEY Unavailable Unavailable JAM JEFF TOGlenda, JEFF TOD Unavailable Unavailable SHOJAEI-JUAN Unavailable Unavailable JAL, SHOJAEI-JUAN JAL JINA MURO Unavailable Unavailable STONE, STONE Unavailable Unavailable LU, LU Unavailable Unavailable [facility] Unavailable [facility], [facility], Unavailable Unavailable [facility] Unavailable [facility], [facility] INTER TIMMONS HUYEN, TIMMONS Unavailable Unavailable HUYEN LIZETT, LIZETT Unavailable Unavailable LIZETT CHR, LIZETT CHR Unavailable Unavailable Purpose Continuity of Care Document - 08-04-2015 through 2016 Problems Code Diagnosis DOS Provider Status [id number] PAIN IN 10-03-2016 [facility]NEE [facility] R05 COUGH 08-14-2016 [facility] A86 UNSPECIFIED 07-10-2016 [facility] S G053 ENCEPHALITI 07-10-2016 [facility] MARION JONES CLASS ELSEW G932 BENIGN 07-10-2016 [facility] HYPERTENSIO N H5213 MYOPIA 07-10-2016 [facility] R51 HEADACHE 07-10-2016 [facility] E559 VITAMIN D 04-03-2016 [facility] UNSPECIFIED INTER G0490 ENCEPHALITI 04-03-2016 [facility] ENCEPHALOMY INTER ELITIS UNSPECIFIED 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 I10 ESSENTIAL 04-03-2016 [facility] HYPERTENSIO INTER N R3915 URGENCY OF 03-28-2016 [facility] R413 OTHER 03-28-2016 [facility]NES[facility] R569 UNSPECIFIED 03-28-2016 [facility] CONVULSIONS [facility] 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 [facility]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 NTS Z8661 PERSONAL 03-28-2016 [facility] H[facility] INFECTIONS [facility] CENTRAL NERV SYSTEM J40 BRONCHITIS 02-29-2016 [facility] NOT PHYSICIANS SPECIFIED GROUP ACUTE OR CHRONIC R5383 OTHER 02-29-2016 [facility] FATIGUE [facility] [id number] PAIN IN 01-14-2016 [facility] RIGHT [facility]BOW [facility] R200 ANESTHESIA 01-14-2016 [facility] OF SKIN PHYSICIANS GROUP Z23 ENCOUNTER 01-14-2016 [facility] IMMUNIZATIO GROUP N Z5181 ENCOUNTER 12-17-2015 [facility] THERAPEUTIC INC DRUG LEVEL MONITORING Z111 ENCOUNTER 12-15-2015 [facility] RESPIRATORY TUBERCULOSI S Q13668 UNSPECIFIED 11-30-2015 [facility] SUPERFICIAL KERATITIS LEFT EYE G4733 OBSTRUCTIVE 11-22-2015 [facility] SLEEP PHYSICIANS APNEA ADULT GROUP PEDIATRIC R202 PARESTHESIA 11-22-2015 [facility] OF SKIN PHYS[facility]ANS GROUP I669 OCCLUSION & 11-18-2015 [facility] UNSPECIFIED INC CEREBRAL ARTERY K649 UNSPECIFIED 09-27-2015 [facility] HEMORRHOIDS GROUP R197 DIARRHEA 09-27-2015 [facility] UNSPECIFIED [facility]YSICIANS GROUP R079 CHEST PAIN 09-06-2015 [facility] [place] M778 OTHER 08-26-2015 [facility] ENTHESOPATH PHYSICIANS IES NOT GROUP ELSEWHERE CLASSIFIED M7030 OTHER 08-20-2015 [facility] ELBOW INC UNSPECIFIED ELBOW M7989 OTHER 08-20-2015 [facility] [place] SPECIFIED MEDICAL SOFT TISSUE IMAGING ASS DISORDERS R609 EDEMA 08-20-2015 [facility] [place]PEC[facility] Medications Na ND Rx Da Fi Fi Am Da Di Ph RX Ph St me C No te ll ll ou ys ag ar # ys at rm s nt no ma ic us Or Da si cy ia de te s n re d ME 68 07 08 21 6 00 HO Ac TH 00 -0 -0 .0 00 ME ti YL 10 7- 4- 00 06 TO ve ME 00 20 20 09 WN ED 50 17 17 03 NI 1 49 PH SO AR LO MA NE CY 4 OF MG CY DO NT SE HI PK AN A LI 68 07 08 90 90 00 HO Ac SI 18 -1 -0 .0 00 ME ti NO 00 2- 4- 00 06 TO ve ME 51 20 20 09 WN IL 90 17 17 05 -H [address] AR Z MA 20 CY -1 2. OF 5 MG CY NT TA HI B AN A AM 00 06 07 30 30 00 HO Ac IT 78 -3 -2 .0 00 ME ti RI 11 0- 8- 00 06 TO ve PT 48 20 20 08 WN YL 80 17 17 47 IN 1 69 PH E AR HC MA L CY 50 OF MG CY TA NT B HI AN A TR 50 06 07 30 30 00 HO Ac AZ 11 -3 -2 .0 00 ME ti OD 10 0- 8- 00 06 TO ve ON 43 20 20 08 WN E 40 17 17 44 10 2 30 PH 0 AR MG MA CY TA BL OF ET CY NT HI AN A PA 31 06 07 30 30 00 HO Ac NT 72 -3 -2 .0 00 ME ti OP 20 0- 8- 00 06 TO ve RA 71 20 20 07 WN ZO 39 17 17 78 LE 0 22 PH AR SO MA D CY DR OF 40 CY MG NT HI TA AN B A 00 06 07 30 30 00 HO Ac TA 53 -3 -2 .0 00 ME ti HI 63 0- 8- 00 06 TO ve N 79 20 20 07 WN D3 00 17 17 78 1 52 PH 2, AR 00 MA 0 CY UN IT OF SO CY FT NT GE HI L AN A DU 68 06 07 30 30 00 HO Ac LO 00 -2 -1 .0 00 ME ti XE 10 0- 4- 00 06 TO ve TI 25 20 20 08 WN NE 70 17 17 47 4 67 PH HC AR L MA DR CY 60 OF MG CY NT CA HI P AN A PA 62 06 06 30 30 00 HO Ac NT 17 -0 -3 .0 00 ME ti OP 50 2- 0- 00 06 TO ve RA 61 20 20 07 WN ZO 74 17 17 78 LE 3 22 PH AR SO MA D CY DR OF 40 CY MG NT HI TA AN B A TO 68 06 06 30 30 00 HO Ac PI 46 -0 -3 .0 00 ME ti RA 20 2- 0- 00 06 TO ve MA 11 20 20 08 WN TE 06 17 17 47 0 68 PH 20 AR 0 MA MG CY TA OF BL ET CY NT HI AN A 00 05 30 30 00 HO Ac TA 53 -2 -2 .0 00 ME ti HI 63 5- 3- 00 06 TO ve N 79 20 20 07 WN D3 00 17 17 78 1 52 PH 2, AR 00 MA 0 CY UN IT OF SO CY FT NT GE HI L AN A TR 50 05 30 30 00 HO Ac AZ 11 -3 -2 .0 00 ME ti OD 10 1- 3- 00 06 TO ve ON 43 20 20 08 WN E 40 17 17 44 10 2 30 PH 0 AR MG MA CY TA BL OF ET CY NT HI AN A AM 00 08 19 29 30 00 HO Ac IT 78 -3 -2 .0 00 ME ti RI 11 - 3- 06 TO ve PT 48 20 20 06 WN YL 80 17 17 62 IN 1 18 PH E AR HC MA L CY 50 OF MG CY TA NT B HI AN A DU 68 05 10 13 30 00 HO Ac LO 00 -1 -0 .0 00 ME ti XE 10 7- 9- 00 06 TO ve TI 25 20 20 08 WN NE 70 17 17 47 4 67 PH HC AR L MA DR CY 60 OF MG CY NT CA HI P AN A PA 62 05 30 30 00 HO Ac NT 17 -0 -0 .0 00 ME ti OP 50 9- 2- 00 06 TO ve RA 61 20 20 07 WN ZO 74 17 17 78 LE 3 22 PH AR SO MA D CY DR OF 40 CY MG NT HI TA AN B A TO 68 05 10 13 30 00 HO Ac PI 46 -0 -0 .0 00 ME ti RA 20 9- 2- 00 06 TO ve MA 11 20 20 08 WN TE 06 17 17 47 0 68 PH 20 AR 0 MA MG CY TA OF BL ET CY NT HI AN A AM 00 05 30 30 00 HO Ac IT 78 -0 -2 .0 00 ME ti RI 11 - 6- 06 TO ve PT 48 20 20 06 WN YL 80 17 17 62 IN 1 18 PH E AR HC MA L CY 50 OF MG CY TA NT B HI AN A TR 50 05 05 30 30 00 HO Ac AZ 11 -0 -2 .0 00 ME ti OD 10 1- 6- 06 TO ve ON 43 20 20 08 WN E 40 17 17 44 10 2 30 PH 0 AR MG MA CY TA BL OF ET CY NT HI AN A BE 69 05 05 30 10 00 HO Ac NZ 38 -0 -2 .0 00 ME ti ON 70 1- 6- 00 06 TO ve AT 12 20 20 08 WN AT 00 17 17 61 E 5 30 PH 20 AR 0 MA MG CY CA OF PS UL CY E NT HI AN A ME 68 05 05 21 6 00 HO Ac TH 00 -0 -2 .0 00 ME ti YL 10 1- 6- 00 06 TO ve ME 00 20 20 08 WN ED 50 17 17 61 NI 1 31 PH SO AR LO MA NE CY 4 OF MG CY DO NT SE HI PK AN A TO 68 04 05 30 30 00 HO Ac PI 46 -1 -0 .0 00 ME ti RA 20 0- 5- 00 06 TO ve MA 11 20 20 08 WN TE 06 17 17 47 0 68 PH 20 AR 0 MA MG CY TA OF BL ET CY NT HI AN A LI 68 04 05 90 90 00 HO Ac SI 18 -1 -0 .0 00 ME ti NO 00 0- 5- 00 06 TO ve ME 51 20 20 08 WN IL 90 17 17 47 -H [address] AR Z MA 20 CY -1 2. OF 5 MG CY NT TA HI B AN A ME 57 04 05 18 90 00 HO Ac TO 23 -1 -0 0. 00 ME ti ME 70 0- 5- 00 06 TO ve OL 10 20 20 0 08 WN OL 19 17 17 47 9 71 PH TA AR RT MA RA CY TE OF 50 CY MG NT HI TA AN B A DU 68 04 05 30 30 00 HO Ac LO 00 -1 -0 .0 00 ME ti XE 10 1- 5- 00 06 TO ve TI 25 20 20 08 WN NE 70 17 17 47 4 67 PH HC AR L MA DR CY 60 OF MG CY NT CA HI P AN A TO 68 04 04 30 [...] CY NT HI AN A AM 00 03 04 30 30 00 HO Ac IT 78 -3 -2 .0 00 ME ti RI 11 1- 8- 00 06 TO ve PT 48 20 20 06 WN YL 80 17 17 62 IN 1 18 PH E AR HC MA L CY 50 OF MG CY TA NT B HI AN A PA 62 03 04 30 30 00 HO Ac NT 17 -3 -2 .0 00 ME ti OP 50 1- 8- 00 06 TO ve RA 61 20 20 07 WN ZO 74 17 17 78 LE 3 22 PH AR SO MA D CY DR OF 40 CY MG NT HI TA AN B A 00 02 03 30 30 00 HO Ac TA 53 -2 -2 .0 00 ME ti HI 63 7- 4- 00 06 TO ve N 79 20 20 07 WN D3 00 17 17 78 1 52 PH 2, AR 00 MA 0 CY UN IT OF SO CY FT NT GE HI L AN A VE 68 02 03 60 30 00 HO Ac NL 00 -2 -2 .0 00 ME ti AF 10 7- 4- 00 06 TO ve AX 15 20 20 08 WN IN 80 17 17 22 E 0 07 PH HC AR L MA 37 CY .5 OF MG CY TA NT BL HI ET AN A TR 50 02 03 30 30 00 HO Ac AZ 11 -2 -2 .0 00 ME ti OD 10 7- 4- 00 06 TO ve ON 43 20 20 08 WN E 40 17 17 22 10 2 12 PH 0 AR MG MA CY TA BL OF ET CY NT HI AN A DI 49 02 03 30 30 00 HO Ac CL 88 -1 -1 0. 00 ME ti OF 40 6- 7- 00 06 TO ve EN 93 20 20 0 06 WN AC 54 17 17 34 7 98 PH SO AR DI MA UM CY 1% OF GE CY L NT HI AN A TO 68 02 03 30 30 00 HO Ac PI 46 -1 -1 .0 00 ME ti RA 20 5- 0- 00 06 TO ve MA 10 20 20 07 WN TE 96 17 17 65 0 75 PH 10 AR 0 MA MG CY TA OF BL ET CY NT HI AN A PA 62 02 03 30 30 00 HO Ac NT 17 -1 -1 .0 00 ME ti OP 50 5- 0- 00 06 TO ve RA 61 20 20 07 WN ZO 74 17 17 78 LE 3 22 PH AR SO MA D CY DR OF 40 CY MG NT HI TA AN B A AM 00 02 03 30 30 00 HO Ac IT 78 -1 -1 .0 00 ME ti RI 11 5- 0- 00 06 TO ve PT 48 20 20 06 WN YL 80 17 17 62 IN 1 18 PH E AR HC MA L CY 50 OF MG CY TA NT B HI AN A 00 01 02 30 30 00 HO Ac TA 53 -2 -2 .0 00 ME ti HI 63 6- 4- 00 06 TO ve N 79 20 20 07 WN D3 00 17 17 78 1 52 PH 2, AR 00 MA 0 CY UN IT OF SO CY FT NT GE HI L AN A TR 50 01 02 30 30 00 HO Ac AZ 11 -2 -2 .0 00 ME ti OD 10 6- 4- 00 06 TO ve ON 43 20 20 08 WN E 40 17 17 02 10 2 82 PH 0 AR MG MA CY TA BL OF ET CY NT HI AN A VE 68 01 02 60 [...] 00 3- 7- 00 06 TO ve ME 51 20 20 07 WN IL 40 [...] TA AN B A TR 50 12 01 30 30 00 HO Ac AZ 11 -3 -2 .0 00 ME ti OD 10 0- 7- 00 06 TO ve ON 43 20 20 07 WN E 40 16 17 39 10 2 09 PH 0 AR MG MA CY TA BL OF ET CY NT HI AN A TO 68 12 01 30 30 00 HO Ac PI 46 [...] 53 -1 -1 .0 00 ME ti HI 63 9- 3- 00 06 TO ve [...] TA AN B A AM 00 12 01 30 30 00 HO Ac IT 78 -1 -0 .0 00 ME ti RI 11 2- 9- 06 TO ve PT 48 20 20 [...] TA NT BL HI ET AN A Immunization Name Date Rout CVX Reac Dose [...] HOSP 3 ITAL DOSE SCHE DULE IM Procedures Procedure DOS Code Location Performer Comment ARTHROCEN 98165 [facility] TESIS 7 PHYSICIAN ASPIR&/IN S GROUP J MAJOR JT/BURSA W/O US VISUAL 57287 [facility] FIELD XM 7 MEDICAL UNI/BI SERV W/INTERP FOUNDATIO EXTENDED N EXAM SENSORMOT 75955 [facility] OR XM 7 MEDICAL W/TOLL PATROLMAN SERV GUILLERMO FOUNDATIO OCULAR N DEVIJ W/I&R SPX COMPREHEN 86345 [facility] SIVE 6 [facility] METABOLIC INC INC PANEL COLLECTIO 43908 [facility] N VENOUS 6 [facility] BLOOD INC INC VENIPUNCT URE THERAPEUT 12264 [facility] IC 6 PHYSICIAN PHYSICIAN PROPHYLAC S GROUP S GROUP TIC/DX INJECTION SUBQ/IM BLOOD 76818 [facility] COUNT 6 [facility] COMPLETE INC INC AUTO&AUTO DIFRNTL WBC INJECTION J0696 [facility] DENIA 6 PHYSICIAN FATUMA CEFTRIAXO S GROUP NE SODIUM PER 250 MG HEPB 37980 [facility] FR[facility]MAN VACCINE 6 PHYSICIAN EUG PED/ADOLE S GROUP SC 3 DOSE SCHEDULE IM IM ADM 60753 [facility] PRQ ID 6 PHYSICIAN EUG SUBQ/IM S GROUP NJXS 1 VACCINE PROTHROMB 70182 [facility] IN TIME 6 [facility] INC INC HEPB 46901 [facility] FR[facility]MAN VACCINE 6 [facility] SC 3 DOSE SCHEDULE IM SKIN TEST 16601 [facility] FRYMAN 6 [facility] SIS INTRADERM AL IM ADM 57795 [facility] PETERSEN PRQ ID 6 [facility] SUBQ[facility]IM [facility]OSP[facility] NJXS 1 VACCINE PROTHROMB 98235 [facility] IN TIME 6 [facility] INC INC COMPREHEN 67510 [facility] RE[facility] SIVE 6 [facility] [place] [address] [facility] THYROID 6 [facility] STIMULATI INC INC NG HORMONE TSH BLOOD 56034 [facility] COUNT 6 [facility] COMPLETE INC INC AUTO&AUTO DIFRNTL WBC PROTHROMB 28481 [facility] IN TIME 6 [facility] INC INC PROTHROMB 51881 [facility] IN TIME 6 [facility] INC INC BLOOD 79359 [facility] COUNT 6 [facility] COMPLETE INC INC AUTO&AUTO DIFRNTL WBC COLLECTIO 86048 [facility] N VENOUS 6 [facility] BLOOD INC INC VENIPUNCT URE COMPREHEN 22981 [facility] RE[facility] SIVE 6 [facility] METABOLIC INC INC PANEL PROTHROMB 51828 [facility] RE[facility] IN TIME 6 [facility] INC INC MYOCARDIA 70254 [facility] ALL L 6 MEDICAL PERFUSION IMAGING PLANAR ASS MULTIPLE STUDIES CV STRS 68616 [facility] IVEY TST 6 [facility] RX CONT P ECG W/O I&R CV STRS 35713 [facility] TST 6 [facility] XERS&/OR INC INC RX CONT ECG TRCG ONLY BASIC 19441 [facility] METABOLIC 6 [facility] PANEL INC INC CALCIUM TOTAL COLLECTIO 98017 [facility] N VENOUS 6 [facility] BLOOD INC INC VENIPUNCT URE CV STRS 66193 [facility] IVEY TST 6 [facility] RX CONT P ECG I&R ONLY MYOCARDIA 25958 [facility] L SPECT 6 [facility] MULTIPLE INC INC STUDIES PROTHROMB 73039 [facility] IN TIME 6 [facility] INC INC PROTHROMB 58827 [facility] IN TIME 6 [facility] INC INC PROTHROMB 07533 [facility] IN TIME 6 [facility] INC INC MRI ANY 02603 [facility] JT UPPER 6 [facility] EXTREMITY INC INC W/O CONTRAST MATRL PROTHROMB 83008 [facility] IN TIME 6 [facility] INC INC COLLECTIO 41142 [facility] RE[facility] N VENOUS 6 [facility] BLOOD INC INC VENIPUNCT URE RADEX 88112 [facility] ELBOW 6 [facility] COMPLETE INC INC MINIMUM 3 VIEWS Encounters Encounter Start End Date Code Location Performer Type Date OFFICE 43696 [facility] OUTPATIEN 7 7 PHYSICIAN T VISIT S GROUP 25 MINUTES OFFICE 28452 [facility] OUTPATIEN 7 7 PHYSICIAN T VISIT S GROUP 15 MINUTES OFFICE 50003 [facility] CONSULTAT 7 7 MEDICAL ION SERV NEW/ESTAB FOUNDATIO PATIENT N 60 MIN OFFICE 84236 [facility] OUTPATI 6 6 Y OF T VISIT [place] 25 INTER [facility] - 6 6 [facility] OUTPATIEN E T HOSPITALS OFFICE 11763 EMAN[facility]EL MURO OUTPATIEN 6 6 MEDICAL T VISIT SERV 25 FOUNDATIO MINUTES N OFFICE 33963 OUTPATIEN 6 6 [facility]ALTH[facility] T VISIT 5 E [facility] GAIL - 6 6 [facility] OUTPATIEN INC T OFFICE 65924 [facility] OUTPATIEN 6 6 PHYSICIAN FATUMA T VISIT S GROUP [address] [facility] GAIL - 6 6 [facility] OUTPATIEN INC T OFFICE 43867 [facility] OUTPATIEN 6 6 T VISIT 10 MINUTES OFFICE 74471 [facility] Y T [facility]ISIT 5 [facility] 81736 [facility] TIMMONS OUTPATIEN 6 6 MEDICAL HUYEN T VISIT SERV 25 FOUNDATIO MINUTES N OFFICE 11594 [facility] SHOJAEI-M OUTPATIEN 6 6 PHYSICIAN OGHADDAM T NEW 45 S GROUP JAL [facility] GAIL - 6 6 [facility] OUTPATIEN INC T OFFICE 57779 [facility] OUTPATIEN 6 6 PHYSICIAN T VISIT S GROUP 15 [facility] GAIL - 6 6 [facility] OUTPATIEN [facility] GAIL - 6 6 [facility] OUTPATIEN INC T OFFICE 33349 [facility] OUTPATIEN 6 6 Y OF T VISIT [place] 25 INTER MINUTES [facility]OSPITAL GAIL - 6 6 [facility] OUTPATIEN INC T OFFICE 89965 [facility] JEFF [facility] CONSULTAT 6 6 PHYSICIAN ION S GROUP NEW/ESTAB PATIENT 40 MIN OFFICE 70456 [facility] OUTPATIEN 6 6 [facility] T VISIT 5 INC MINUTES [facility]OSPITAL GAIL - 6 6 [facility] OUTPATIEN INC [facility] GAIL - 6 6 [facility] OUTPATIEN INC T OFFICE 10095 [facility] OUTPATIEN 6 6 [facility] T VISIT INC [address] [facility] GAIL - 6 6 [facility] OUTPATIEN INC T OFFICE 81946 [facility] MARQUIS OUTPATIEN 6 6 PHYSICIAN MANUEL T VISIT S GROUP TONNY SIERRA [address] [facility] GAIL - 6 6 [facility] OUTPATIEN INC T OFFICE 66139 [facility] PETTEY OUTPATIEN 6 6 PHYSICIAN ISABEL T VISIT S GROUP [address] [facility] GAIL - 6 6 [facility] OUTPATIEN INC [facility] GAIL - 6 6 [facility] OUTPATIEN INC [facility] GAIL - 6 6 [facility] OUTPATIEN INC [facility] GAIL - 6 6 [facility] OUTPATIEN INC T OFFICE 88022 [facility] OUTPATIEN 6 6 PHYSICIAN JAM T VISIT S GROUP 25 MINUTES
--- OUTSIDE RECORDS SUMMARY | 2016-11-28 19:07 | External Medical Summary Rpt ---
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 Name Role Phone UCHE YOO Unavailable Unavailable LIZZETTE PADILLA ALL, PADILLA ALL Unavailable Unavailable MARQUIS JACKSON PA-C Unavailable Unavailable MARQUIS SIERRA PA-C RIGO FRYMAN EUG, FRYMAN Unavailable Unavailable EUG DENIA FATUMA, DENIA Unavailable Unavailable FATUMA [facility] Unavailable Unavailable INC, [facility] Unavailable Unavailable HOSPITAL, [facility] ALLISON, ALLISON Unavailable Unavailable ALLISON, ALLISON Unavailable Unavailable [facility], Unavailable Unavailable [facility] Unavailable Unavailable [facility], [facility] PETTEY JAM, PETTEY Unavailable Unavailable JAM JEFF TOGlenda, JEFF TOD Unavailable Unavailable SHOJAEI-JUAN Unavailable Unavailable JAL, SHOJAEI-JUAN JAL JINA MURO Unavailable Unavailable STONE, STONE Unavailable Unavailable LU, LU Unavailable Unavailable [facility] Unavailable Unavailable [facility], [facility], Unavailable Unavailable [facility] Unavailable [facility], [facility] INTER TIMMONS HUYEN, TIMMONS Unavailable Unavailable HUYEN LIZETT, LIZETT Unavailable Unavailable LIZETT CHR, LIZETT CHR Unavailable Unavailable Purpose Continuity of Care Document - 08-04-2015 through 2016 Problems Code Diagnosis DOS Provider Status [id number] PAIN IN 10-03-2016 [facility] LEFT KNEE PHYS[facility] R05 COUGH 08-14-2016 [facility] A86 UNSPECIFIED 07-10-2016 [facility] S G053 ENCEPHALITI 07-10-2016 [facility] MARION JONES CLASS ELSEW G932 BENIGN 07-10-2016 [facility]TRA[facility] HYPERTENSIO N H5213 MYOPIA 07-10-2016 [facility] R51 HEADACHE 07-10-2016 [facility] E559 VITAMIN D 04-03-2016 [facility] UNSPECIFIED INTER G0490 ENCEPHALITI 04-03-2016 [facility] ELITIS UNSPECIFIED 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 [facility] INTRASPINL INTER PHLEBIT & THROMBOPHLE BIT I10 ESSENTIAL 04-03-2016 [facility] HYPERTENSIO INTER N R3915 URGENCY OF 03-28-2016 [facility]IN[facility] R413 OTHER 03-28-2016 [facility] AMNESIA [facility] R569 UNSPECIFIED 03-28-2016 [facility]ALTH[facility]ARE CONVULSIONS [facility] 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 SERV OF [facility]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 NTS Z8661 PERSONAL 03-28-2016 [facility] HISTORY SERV INFECTIONS [facility] CENTRAL NERV SYSTEM J40 BRONCHITIS 02-29-2016 [facility] NOT PHYSICIANS SPECIFIED GROUP ACUTE OR CHRONIC R5383 OTHER 02-29-2016 [facility] FATIGUE PHYSICIANS GROUP [id number] PAIN IN 01-14-2016 [facility] RIGHT ELBOW PHYSICIANS GROUP R200 ANESTHESIA 01-14-2016 [facility] OF SKIN PHYSICIANS GROUP Z23 ENCOUNTER 01-14-2016 [facility] FOR [facility]YSICIANS IMMUNIZATIO GROUP N Z5181 ENCOUNTER 12-17-2015 [facility] THERAPEUTIC INC DRUG LEVEL MONITORING Z111 ENCOUNTER 12-15-2015 [facility] RESPIRATORY TUBERCULOSI S [id number] UNSPECIFIED 11-30-2015 [facility] SUPERFICIAL KERATITIS LEFT EYE G4733 OBSTRUCTIVE 11-22-2015 [facility] SLEEP PHYSICIANS APNEA ADULT GROUP PEDIATRIC R202 PARESTHESIA 11-22-2015 [facility] OF SKIN PHYSICIANS GROUP I669 OCCLUSION & 11-18-2015 [facility] UNSPECIFIED INC CEREBRAL ARTERY K649 UNSPECIFIED 09-27-2015 [facility] PHYSICIANS HEMORRHOIDS GROUP R197 DIARRHEA 09-27-2015 [facility] UNSPECIFIED PHYSICIANS GROUP R079 CHEST PAIN 09-06-2015 [facility] M778 OTHER 08-26-2015 [facility] ENTHESOPATH PHYSICIANS IES NOT GROUP ELSEWHERE CLASSIFIED M7030 OTHER 08-20-2015 [facility] ELBOW INC UNSPECIFIED ELBOW M7989 OTHER 08-20-2015 [facility] SPECIFIED MEDICAL SOFT TISSUE IMAGING ASS DISORDERS R609 EDEMA 08-20-2015 [facility] Medications Na ND [...] 10 7- 4- 00 06 TO ve PA 00 20 20 09 WN ED 50 17 17 03 NI 1 49 PH SO AR LO MA NE CY 4 OF MG CY DO NT SE HI PK AN A LI 68 07 08 90 90 00 HO Ac SI 18 -1 -0 .0 00 ME ti NO 00 2- 4- 00 06 TO ve PA 51 20 20 09 WN IL 90 [...] 53 -3 -2 .0 00 ME ti AR 63 0- 8- 00 06 TO ve [...] 53 -2 -2 .0 00 ME ti AR 63 5- 3- 00 06 TO ve [...] 10 1- 6- 00 06 TO ve PA 00 20 20 08 WN ED 50 [...] 00 0- 5- 00 06 TO ve PA 51 20 20 08 WN IL 90 17 17 47 -H [address] AR Z MA 20 CY -1 2. OF 5 MG CY NT TA HI B AN A ME 57 04 05 18 90 00 HO Ac TO 23 -1 -0 0. 00 ME ti PA 70 0- 5- 00 06 TO ve [...] 53 -2 -2 .0 00 ME ti AR 63 7- 4- 00 06 TO ve [...] 53 -2 -2 .0 00 ME ti AR 63 6- 4- 00 06 TO ve [...] 00 3- 7- 00 06 TO ve PA 51 20 20 07 WN IL 40 [...] 53 -1 -1 .0 00 ME ti AR 63 9- 3- 00 06 TO ve [...] Procedure DOS Code Location Performer Comment ARTHROCEN 49414 [facility] STONE TESIS 7 PHYSICIAN ASPIR&/IN S GROUP J MAJOR JT/BURSA W/O US VISUAL 78155 [facility] FIELD XM 7 MEDICAL UNI/BI SERV W/INTERP FOUNDATIO EXTENDED N EXAM SENSORMOT 00094 [facility] OR XM 7 MEDICAL W/[facility] PRACTITIONER SERV GUILLERMO FOUNDATIO OCULAR N DEVIJ W/I&R SPX COMPREHEN 21962 [facility] SIVE 6 [facility] METABOLIC INC INC PANEL COLLECTIO 17668 [facility] N VENOUS 6 [facility] BLOOD INC INC VENIPUNCT URE THERAPEUT 23924 [facility] IC 6 PHYSICIAN PHYSICIAN PROPHYLAC S GROUP S GROUP TIC/DX INJECTION SUBQ/IM BLOOD 83893 [facility] COUNT 6 [facility] COMPLETE INC INC AUTO&AUTO DIFRNTL WBC INJECTION J0696 [facility] DENIA 6 PHYSICIAN FATUMA CEFTRIAXO S GROUP NE SODIUM PER 250 MG HEPB 27470 [facility] FRYMAN VACCINE 6 PHYSICIAN EUG PED/ADOLE S GROUP SC 3 DOSE SCHEDULE IM IM ADM 83757 [facility] FRYMAN PRQ ID 6 PHYSICIAN EUG SUBQ/IM S GROUP NJXS 1 VACCINE PROTHROMB 53330 [facility] IN TIME 6 [facility] INC INC HEPB 69957 [facility] FR[facility]MAN VACCINE 6 [facility] SC 3 DOSE SCHEDULE IM SKIN TEST 72447 [facility] FRYMAN 6 [facility] S[facility] INTRADERM AL IM ADM 07451 [facility] PETERSEN PRQ ID 6 [facility] SUBQ/IM HOSPITAL NJXS 1 VACCINE PROTHROMB 45327 [facility] IN TIME 6 [facility] INC INC COMPREHEN 53969 [facility] RE[facility] SIVE 6 [facility] [place] [address] [facility] THYROID 6 [facility] STIMULATI INC INC NG HORMONE TSH BLOOD 46406 [facility] COUNT 6 [facility] COMPLETE INC INC AUTO&AUTO DIFRNTL WBC PROTHROMB 36917 [facility] IN TIME 6 [facility] INC INC PROTHROMB 50591 [facility] IN TIME 6 [facility] INC INC BLOOD 49255 [facility] COUNT 6 [facility] COMPLETE INC INC AUTO&AUTO DIFRNTL WBC COLLECTIO 22118 [facility] N VENOUS 6 [facility] BLOOD INC INC VENIPUNCT URE COMPREHEN 64182 [facility] RE[facility] SIVE 6 [facility] METABOLIC INC INC PANEL PROTHROMB 48583 [facility] RE[facility] IN TIME 6 [facility] INC INC MYOCARDIA 27850 [facility] ALL L 6 MEDICAL PERFUSION IMAGING PLANAR ASS MULTIPLE STUDIES CV STRS 02594 [facility] IVEY TST 6 [facility] RX CONT P ECG W/O I&R CV STRS 92168 [facility] TST 6 [facility] XERS&/OR INC INC RX CONT ECG TRCG ONLY BASIC 83498 [facility] METABOLIC 6 [facility] PANEL INC INC CALCIUM TOTAL COLLECTIO 44720 [facility] N VENOUS 6 [facility] BLOOD INC INC VENIPUNCT URE CV STRS 88832 [facility] IVEY TST 6 [facility] RX CONT P ECG I&R ONLY MYOCARDIA 73157 [facility] L SPECT 6 [facility] MULTIPLE INC INC STUDIES PROTHROMB 70669 [facility] RE[facility]OL[facility] IN TIME 6 [facility] INC INC PROTHROMB 46463 [facility] IN TIME 6 [facility] INC INC PROTHROMB 57534 [facility] IN TIME 6 [facility] INC INC MRI ANY 80082 [facility] JT UPPER 6 [facility] EXTREMITY INC INC W/O CONTRAST MATRL PROTHROMB 40677 [facility] IN TIME 6 [facility] INC INC COLLECTIO 00572 [facility] N VENOUS 6 [facility] BLOOD INC INC VENIPUNCT URE RADEX 52630 [facility] ELBOW 6 [facility] COMPLETE INC INC MINIMUM 3 VIEWS Encounters Encounter Start End Date Code Location Performer Type Date OFFICE 06215 [facility] STONE OUTPATIEN 7 7 PHYSICIAN T VISIT S GROUP 25 MINUTES OFFICE 82992 [facility] STONE OUTPATIEN 7 7 PHYSICIAN T VISIT S GROUP 15 MINUTES OFFICE 91211 [facility] CONSULTAT 7 7 MEDICAL ION SERV NEW/ESTAB FOUNDATIO PATIENT N [address] [facility] OUTPATI 6 6 Y OF T VISIT [place] 25 INTER [facility] - 6 6 [facility] OUTPATIEN [facility] T HOSPITALS OFFICE 67540 [facility] MURO OUTPATIEN 6 6 MEDICAL T VISIT SERV 25 FOUNDATIO MINUTES N OFFICE 05625 OUTPATIEN 6 6 [facility] T VISIT 5 E [facility] GAIL - 6 6 [facility] OUTPATIEN INC T OFFICE 52730 [facility] OUTPATIEN 6 6 PHYSICIAN FATUMA T VISIT S GROUP 25 MINUTES [facility] GAIL - 6 6 [facility] OUTPATIEN INC T OFFICE 14502 [facility] OUTPATIEN 6 6 T VISIT 10 MINUTES OFFICE 30816 [facility] 6 6 Y T VISIT 5 HOSPITAL [facility] - [facility] T OFFICE 85756 EMANUEL TIMMONS OUTPATIEN 6 6 MEDICAL HUYEN T VISIT SERV 25 FOUNDATIO MINUTES N OFFICE 95161 [facility] SHOJAEI-M OUTPATIEN 6 6 PHYSICIAN OGHADDAM T NEW 45 S GROUP JAL [facility] GAIL - 6 6 [facility] OUTPATIEN INC T OFFICE 03940 [facility] OUTPATIEN 6 6 PHYSICIAN T VISIT S GROUP 15 [facility] GAIL - 6 6 [facility] OUTPATIEN [facility] GAIL - 6 6 [facility] OUTPATIEN INC T OFFICE 90897 [facility] OUTPATIEN 6 6 Y OF T VISIT [place] 25 INTER MINUTES [facility]OSPITAL GAIL - 6 6 [facility] OUTPATIEN INC T OFFICE 79775 [facility] JEFF GARLAND CONSULTAT 6 6 PHYSICIAN ION S GROUP NEW/ESTAB PATIENT 40 MIN OFFICE 02331 [facility] OUTPATIEN 6 6 [facility] T VISIT 5 INC MINUTES HOSPITAL GAIL - 6 6 [facility] OUTPATIEN INC [facility] GAIL - 6 6 [facility] OUTPATIEN INC T OFFICE 18181 [facility] OUTPATIEN 6 6 MEM [facility] T VISIT INC 10 MINUTES [facility] GAIL - 6 6 [facility] OUTPATIEN INC T OFFICE 28406 [facility] MARQUIS OUTPATIEN 6 6 PHYSICIAN MANUEL T VISIT S GROUP TONNY SIERRA 25 MINUTES [facility] GAIL - 6 6 [facility] OUTPATIEN INC T OFFICE 94489 [facility] PETTEY OUTPATIEN 6 6 PHYSICIAN ISABEL T VISIT S GROUP 15 MINUTES [facility] GAIL - 6 6 [facility] OUTPATIEN INC [facility] GAIL - 6 6 [facility] OUTPATIEN INC [facility] - 6 6 [facility]PAT[facility] GAIL - 6 6 MEM [facility] OUTPATIEN INC T OFFICE 25608 [facility] PETTEY OUTPATIEN 6 6 PHYSICIAN JAM T VISIT S GROUP 25 MINUTES
--- OUTSIDE RECORDS SUMMARY | 2016-11-28 19:07 | External Medical Summary Rpt ---
Author Author , JAYLA DICKERSON Address Unknown Phone [email or web address] Immunization Name Date Rout CVX Reac Dose Comm Prov Is Faci e tion ent ider Refu lity Give sed n Hep 11-0 43 999 [facility] B, 1-20 oric 1 1 adul 14 al t Info rmat ion - Sour ce Unsp ecif ied Tdap 01-0 115 999 Hist [facility] , 1-20 oric 1 1 Adso 10 al rbed Info rmat ion - Sour ce Unsp ecif ied
--- OUTSIDE RECORDS SUMMARY | 2016-11-28 19:07 | External Medical Summary Rpt ---
Author Author , JAYLA DICKERSON Address Unknown Phone [email or web address] Immunization Name Date Rout CVX Reac Dose [...]
--- OUTSIDE RECORDS SUMMARY | 2016-11-28 19:08 | External Medical Summary Rpt ---
Author Author JAYLA Deshpande, JAYLA [employer]ak Organization [employer] Address Unknown Phone Unavailable Results Cobalamin (Vitamin B12) [Mass/volume] in Serum Observa Value Referen Units Interpr Notes Date tion ce etation Range Cobalamin 211 - 946 pg/mL No Performed Nov 09 (Vitamin informati at: CB 2016 8:24 B12) on in - [facility] AM [Mass/vol source ume] in data [place] [address] Serum 0 [place], [place] [id number] Hospital Administrative Assistant: Cruz Cruz PhD, Phone: [phone] Folate [Mass/volume] in Serum or Plasma Observa Value Referen Units Interpr Notes Date tion ce etation Range Folate >3.0 ng/mL No A serum Nov 09 [Mass/vol informati folate 2016 8:24 ume] in on in concentra AM Serum or source tion of Plasma data less than 3.1 ng/mL isconside red to represent clinical deficienc y. Testosterone, Free+Total LC/MS Observa Value Referen Units Interpr Notes Date tion ce etation Range Testoster 6.8 - pg/mL No Performed Nov 09 one Free 21.5 informati at: BN 2016 8:24 [Mass/vol on in - [facility] AM ume] in source Serum or data [facility] Plasma [address] [place], [place] [id number] Hospital Administrative Assistant: Karissa Arguello MD, Phone: [phone] Testoster 264.0 - ng/dL Low Please Nov 09 one 916.0 note 2016 8:24 [Mass/vol reference AM ume] in interval Serum or Plasma changeT his [facility] LC/MS-MS method is currently certified by [facility] Hormone Standardi zation Program (HoSt). Adult malerefer ence interval is based on a populatio n of healthyno nobese males (BMI <30) between 19 and 39 years old.Isabel lugo et.al. JCEM 2017,102; 4889-8427 . PMID: [id number]. Performed at: - [facility] [address] [place], [place] [id number] Hospital Administrative Assistant: Karissa Arguello MD, Phone: [phone] 25-Hydroxyvitamin D [Mass/volume] in Serum or Plasma Observa Value Referen Units Interpr Notes Date tion ce etation Range 25-Hydrox 30.0 - ng/mL No Vitamin D Nov 09 yvitamin 100.0 inform2016 8:24 D on in deficienc AM [Mass/vol source y has ume] in data been Serum or defined Plasma by the [place] [facility] e and an Endocrine Society practice guideline as alevel of serum 25-OH vitamin D less than 20 ng/mL (1,2).The Endocrine Society went on to further define vitamin Dinsuffic iency as a level between 21 and 29 ng/mL (2).1. IOM (Institut e of Medicine) . 2010. Dietary reference intakes for calcium and D. [facility] more[place]: [employer].2. Porsha MF, Nenita GOULD, Clyde Mehta FRANCOIS, et al.Evalua tion, treatment , and preventio n of vitamin Ddeficien cy: an Endocrine Society clinical practiceg uideline. JCEM. 2010; 96(7):191 1-30.Perf ormed at: - [facility] [id number] Hospital Administrative Assistant: Cruz Cruz PhD, Phone: [phone] Hemoglobin A1c in Blood Observa Value Referen Units Interpr Notes Date tion ce etation Range Hemoglo 6.5 0.0 - % Normal < 6% Nov 09 bin A1c 7.0 NON-MINDA 2017 in BETIC 8:24 AM Blood LEVEL< 7% CONTROL LED DIABETI C LEVEL> 8% POORLY CONTROL LED DIABETI C LEVEL CBC W Auto Differential panel in Blood Observa Value Referen Units Interpr Notes Date tion ce etation Range Basophils 0 - 0.2 K/MM3 Normal No Nov 09 inform2016 8:24 [#/volume on in AM ] in source Blood by data Automated count Basophils 0.1 - 2.0 % Normal No Nov 09 informati 2016 8:24 leukocyte on in AM s in source Blood by data Automated count Eosinophi 0.0 - 0.4 K/mm3 Normal No Nov 09 ls informati 2016 8:24 [#/volume on in AM ] in source Blood by data Automated count Eosinophi 0.1 - % Normal No Nov 09 ls/100 12.0 informati 2016 8:24 leukocyte on in AM s in source Blood by data Automated count Granulocy 1.3 - 8.0 K/mm3 Normal No Nov 09 chito informati 2016 8:24 [#/volume on in AM ] in source Blood by data Automated count Granulocy 37.0 - % Normal No Nov 09 chito/100 80.0 informati 2016 8:24 leukocyte on in AM s in source Blood by data Automated count Hematocri 42.0 - % Normal No Nov 09 t [Volume 52.0 informati 2016 8:24 on in AM Fraction] source of Blood data Hemoglobi 14.1 - g/dL Low No Nov 09 n 18.0 informati 2016 8:24 [Mass/vol on in AM ume] in source Blood data Lymphocyt 0.7 - 4.5 K/mm3 Normal No Nov 09 es informati 2016 8:24 [#/volume on in AM ] in source Unspecifi data ed specimen by Automated count Lymphocyt 10 - 50 % Normal No Nov 09 es informati 2016 8:24 [#/volume on in AM ] in source Unspecifi data ed specimen by Automated count Erythrocy 27 - 31.2 pg Normal No Nov 09 te mean informati 2016 8:24 corpuscul on in AM ar source hemoglobi data n [Entitic mass] Erythrocy 31.8 - g/dl Low No Nov 09 te mean 35.4 informati 2016 8:24 corpuscul on in AM ar source hemoglobi data n concentra tion [Mass/vol ume] by Automated count Erythrocy 82.2 - fl Normal No Nov 09 te mean 97.8 informati 2016 8:24 corpuscul on in AM ar volume source [Entitic data volume] by Automated count Monocytes 0.1 - 1.0 K/mm3 Normal No Nov 09 informati 2016 8:24 [#/volume on in AM ] in source Blood by data Automated count Monocytes 1.7 - 9.3 % Normal No Tad 27 /100 informati 2017 8:24 leukocyte on in AM s in source Blood by data Automated count Platelet 7.4 - fl Normal No Nov 09 mean 10.4 informati 2017 8:24 volume on in AM [Entitic source volume] data in Blood by Automated count Platelets 142 - 424 K/mm3 Normal No Nov 09 informati 2017 8:24 [#/volume on in AM ] in source Blood data Erythrocy 4.6 - 6.2 M/mm3 Normal No Nov 09 chito informati 2017 8:24 [#/volume on in AM ] in source Amniotic data fluid Erythrocy 11.5 - % Normal No Nov 09 te 17.5 informati 2017 8:24 distribut on in AM ion width source [Entitic data volume] by Automated count Leukocyte 4.8 - K/MM3 Normal No Nov 09 s 10.8 informati 2016 8:24 [#/volume on in AM ] in source Blood data Comprehensive metabolic 2000 panel in Serum or Plasma Observa Value Referen Units Interpr Notes Date tion ce etation Range Albumin/G 1.1 - 1.8 No Low No Nov 09 lobulin informati informati 2016 8:24 [Mass on in on in AM ratio] in source source Serum or data data Plasma Albumin 3.4 - 5.0 gm/dL Normal No Nov 09 [Mass/vol informati 2016 8:24 ume] in on in AM Serum or source Plasma data Alkaline 46 - 116 U/L Normal No Nov 09 phosphata informati 2016 8:24 se on in AM [Enzymati source c data activity/ volume] in Serum or Plasma Bilirubin 0.2 - 1.0 mg/dL Normal No Nov 09 .total informati 2016 8:24 [Mass/vol on in AM ume] in source Serum or data Plasma Urea 7 - 18 mg/dL High No Nov 09 nitrogen informati 2017 8:24 [Mass/vol on in AM ume] in source Serum or data Plasma Calcium 8.5 - mg/dL Normal No Nov 09 [Mass/vol 10.1 informati 2016 8:24 ume] in on in AM Serum or source Plasma data Chloride 98 - 107 mmoL/L Normal No Nov 09 [Moles/vo informati 2017 8:24 lume] in on in AM Serum or source Plasma data Carbon 21.0 - mmoL/L Normal No Nov 09 dioxide, 32.0 informati 2017 8:24 total on in AM [Moles/vo source lume] in data Serum or Plasma Creatinin 0.70 - mg/dL High No Nov 09 e 1.30 informati 2016 8:24 [Mass/vol on in AM ume] in source Serum or data Plasma Estimated >60 ML/MIN No REFERENCE Nov 09 informati RANGE: 2017 8:24 glomerula on in >60 AM r source ML/MIN/1. filtratio data 73 SQUARE n rate METERSIf (GF this patient is -A merican, then multiply theresult by 1.210. Globulin 1.3 - 3.2 gm/dL High No Nov 09 [Mass/vol informati 2016 8:24 ume] in on in AM Serum source data Glucose 74 - 106 mg/dL High No Nov 09 [Mass/vol informati 2016 8:24 ume] in on in AM Serum or source Plasma data Potassium 3.5 - 5.1 mmoL/L Normal No Nov 09 inform2016 8:24 [Moles/vo on in AM lume] in source Serum or data Plasma Sodium 136 - 145 mmoL/L Normal No Nov 09 [Moles/vo informati 2016 8:24 lume] in on in AM Serum or source Plasma data Aspartate 15 - 37 U/L Normal No Nov 09 informati 2016 8:24 aminotran on in AM sferase source [Enzymati data c activity/ volume] in Serum or Plasma Alanine 12 - 78 U/L Normal No Nov 09 aminotran informati 2016 8:24 sferase on in AM [Enzymati source c data activity/ volume] in Serum or Plasma Protein 6.4 - 8.2 gm/dL Normal No Nov 09 [Mass/vol informati 2016 8:24 ume] in on in AM Serum or source Plasma data Thyroxine (T4) free [Mass/volume] in Serum or Plasma Observa Value Referen Units Interpr Notes Date tion ce etation Range Thyroxine 0.76 - ng/dL Normal No Nov 09 (T4) 1.46 informati 2016 8:24 free on in AM [Mass/vol source ume] in data Serum or Plasma Thyrotropin [Units/volume] in Serum or Plasma Observa Value Referen Units Interpr Notes Date tion ce etation Range Thyrotrop 0.358 - uIU/ml Normal No Nov 09 in 3.740 informati 2016 8:24 [Units/vo on in AM lume] in source Serum or data Plasma CT ABD and PELVIS WITH or WITHOUT Observa Value Referen Units Interpr Notes Date tion ce etation Range CT ABD No No No No September 03 and informa informa informa informa 2013 PELVIS tion in tion in tion in tion in 7:56 AM WITH or source source source source data data data data WITHOUT [facility] L\.br\ [address]\.br \ [place] [address]\. br\\.br \ RADIOLO GY REPORT\ .br\ Name: HARLEEN Mitchell\.br\ Patient #: [id number] Stay Type: O/P\.br \ Age: 36 Room:\. br\ : 976 Sex: M\.br\ Orderin g Phys: JOSÉ MIGUEL GARY MR#: [id number]\. br\ Family Phys: ESQUIVEL WM Pt Phone: [phone] /[phone]\. br\ Admitti ng Phys: JOSÉ MIGUEL LAR\.br \ Unsig efraín Transcr iptions represe nt a prelimi nary report and do\.br\ not reflect a medical or legal documen t.\.b r\\.br\ CT A[place] [id number] COMPLET E:09/03 07:56 [id number]\. br\ Diagnos is: ABDOMIN AL PAIN\.b r\\.br\ HISTORY /INDICA TION: Status post cholecy stectom y and umbilic al hernia repair. Patient \.br\ complai ns of postpra ndial abdomin al pain mainly in the left upper and lower quadran ts.\.br \ Constip ation. Compare d to prior study dated 010.\.b r\\.br\ FINDING S: Multisl ice axial enhance d imaging of the abdomen and pelvis was perform ed as well\.b r\ as 2D reconst ruction s in the coronal plane. Lung bases are clear. Again noted is an apparen t left\.b r\ sided diaphra gmatic hernia contain ing signifi cant portion of the stomach . The GE junctio n is in its\.br \ normal positio n. This does not appear to represe nt a herniat ion of the hiatus. This appears to have\.b r\ increas ed in size when compare d to the previou s study. There is tinting of the gastroh epatic\ .br\ ligamen t due to the hernia. \.br\\. br\ Liver, spleen, pancrea s, adrenal glands and kidneys have a normal appeara nce. The gallbla dder is\.br\ surgica lly absent. Large and small bowel have a normal appeara nce. Prostat e gland, rectum and\.br \ urinary bladder appear normal. \.br\\. br\ No signifi cant osseus patholo gy is identif ied.\.b r\\.br\ IMPRESS ION:\.b r\ Interva l increas ed size in left diaphra gmatic hernia at its medial extent which contain s a\.br\ large portion of the stomach .\.br\ No acute intraab dominal or pelvic abnorma lity.\. br\ Status post cholecy stectom y.\.br\ Electro nically reviewe d and signed by:\.br \ JOSE SALINAS MD\.br\ RADIOLO GIST/ 17:07\. br\\.br \ Dictati on Date/Ti me: 09/03/1210:56 Dictate d By: JOSE SALINAS MD RADIOLO GIST\.b r\ Transcr . Date/Ti me: 09/03/12:33 Transcr . Init.: [facility]\.br \\.br\ Copy for: JOSÉ MIGUEL TAYOLR M.D. via fax\.br \ Copy for: ALVIN HANCOCK M.D. via fax\.br \\.br\ Comprehensive metabolic 1998 panel in Serum or Plasma Observa Value Referen Units Interpr Notes Date tion ce etation Range Sodium 139 136 - mmol/L No No Jul 1 [Moles/ 145 informa informa 2013 volume] tion in tion in 8:15 AM in source source Serum data data or Plasma Potassi 4.0 3.50 - mmol/L No No Apr 1 um 5.10 informa informa 2012 [Moles/ tion in tion in 8:15 AM volume] source source in data data Serum or Plasma Chlorid 104 98 - mmol/L No No Apr 1 e 107 informa informa 2013 [Moles/ tion in tion in 8:15 AM volume] source source in data data Serum or Plasma TOTAL 29 21 - 32 mmol/L No No Apr 1 CO2 informa informa 2013 tion in tion in 8:15 AM source source data data ANION 10 5 - 15 mmol/L No No Apr 1 GAP informa informa 2013 tion in tion in 8:15 AM source source data data Glucose 106 70 - mg/dl No No Apr 1 120 informa informa 2013 [Mass/v tion in tion in 8:15 AM olume] source source in data data Serum or Plasma Urea 7 7 - 18 mg/dl No No Apr 1 nitroge informa informa 2013 n tion in tion in 8:15 AM [Mass/v source source olume] data data in Serum or Plasma Creatin 1.2 0.60 - mg/dl No No Apr 1 ine 1.30 informa informa 2013 [Mass/v tion in tion in 8:15 AM olume] source source in data data Serum or Plasma AGE 36 No yrs No No Apr 1 informa informa informa 2013 tion in tion in tion in 8:15 AM source source source data data data GFR 60 No ml/min No No Apr 1 informa informa informa 2013 tion in tion in tion in 8:15 AM source source source data data data Calcium 8.7 8.50 - mg/dl No No Apr 1 10.10 informa informa 2012 [Mass/v tion in tion in 8:15 AM olume] source source in data data Serum or Plasma Bilirub 0.4 0.20 - mg/dl No No Apr 1 in.tota 1.0 informa informa 2013 l tion in tion in 8:15 AM [Mass/v source source olume] data data in Serum or Plasma Asparta 15 15 - 37 IU/L No No Apr 1 te informa informa 2013 aminotr tion in tion in 8:15 AM ansfera source source se data data [Enzyma tic activit y/volum e] in Serum or Plasma Alanine 35 30 - 65 IU/L No No Apr 1 informa informa 2013 aminotr tion in tion in 8:15 AM ansfera source source se data data [Enzyma tic activit y/volum e] in Serum or Plasma Alkalin 89 50 - IU/L No No Apr 1 e 136 informa informa 2012 phospha tion in tion in 8:15 AM tase source source [Enzyma data data tic activit y/volum e] in Serum or Plasma Protein 7.0 6.40 - g/dl No No Apr 1 8.20 informa informa 2012 [Mass/v tion in tion in 8:15 AM olume] source source in data data Serum or Plasma Albumin 3.5 3.40 - g/dl No No Apr 1 5.0 informa informa 2012 [Mass/v tion in tion in 8:15 AM olume] source source in data data Serum or Plasma GLOBULI 3.5 1.30 - g/dl No No Apr 1 N 3.50 informa informa 2013 tion in tion in 8:15 AM source source data data A/G 1.0 1.0 - ratio No No Apr 1 RATIO 3.90 informa informa 2013 tion in tion in 8:15 AM source source data data GLOMERU No No No No Apr 1 LAR informa informa informa informa 2013 FILTRAT tion in tion in tion in tion in 7:01 AM ION source source source source RATE data data data data INTERPR ETATION Normal No No No No Apr 1 Range: informa informa informa informa 2013 60 tion in tion in tion in tion in 8:15 AM Ml/min/ source source source source 1.73 sq data data data data meters If No No No No Apr 1 patient informa informa informa informa 2013 is tion in tion in tion in tion in 8:15 AM source source source source data data data data Tena n, multipl y GFR by 1.120. *GFR No No No No Apr 1 only informa informa informa informa 2013 applies tion in tion in tion in tion in 8:15 AM to source source source source adults data data data data over the age 18. Bilirubin.direct [Mass/volume] in Serum or Plasma Observa Value Referen Units Interpr Notes Date tion ce etation Range Bilirub 0.1 0.0 - mg/dl No No Apr 1 in.dire 0.[address] tion in tion in 8:15 AM [Mass/v source source olume] data data in Serum or Plasma Urinalysis complete panel in Urine Observa Value Referen Units Interpr Notes Date tion ce etation Range Color LT. NL: No No No Apr 1 of [place] Negativ informa informa informa 2012 Urine e tion in tion in tion in 7:26 AM source source source data data data Appeara CLEAR NL: No No No Apr 1 nce of Negativ informa informa informa 2012 Urine e tion in tion in tion in 7:26 AM source source source data data data Glucose NEG NL: No No No Jul 15 Negativ informa informa informa 2012 [Mass/v e tion in tion in tion in 7:26 AM olume] source source source in data data data Urine by Test strip Bilirub NEG NL: No No No Jul 1 in Negativ informa informa informa 2013 [Presen e tion in tion in tion in 7:26 AM ce] in source source source Urine data data data by Test strip Ketones NEG NL: No No No Apr Negativ informa informa informa 2012 [Presen e tion in tion in tion in 7:26 AM ce] in source source source Serum data data data or Plasma Specifi >=1.030 NL: No No No Apr 1 c 1.00 >= informa informa informa 2013 gravity 1.030 tion in tion in tion in 7:26 AM of source source source Urine data data data Hemoglo NEG NL: No No No Apr 1 bin Negativ informa informa informa 2012 [Presen e tion in tion in tion in 7:26 AM ce] in source source source Urine data data data by Test strip pH of 6.0 NL: No No No Apr 1 Urine informa informa informa 2013 by Test tion in tion in tion in 7:26 AM strip source source source data data data Protein NEG NL: No No No Apr 1 Negativ informa informa informa 2013 [Presen e tion in tion in tion in 7:26 AM ce] in source source source Urine data data data by Test strip Urobili 0.2 NL: 0.2 No No No Apr 1 nogen - 1.0 informa informa informa 2012 [Mass/v tion in tion in tion in 7:26 AM olume] source source source in data data data Urine by Test strip Nitrite NEG NL: No No No Apr 1 Negativ informa informa informa 2012 [Presen e tion in tion in tion in 7:26 AM ce] in source source source Urine data data data by Test strip Leukocy NEG NL: No No No Apr 1 chito Negativ informa informa informa 2012 [#/volu e tion in tion in tion in 7:26 AM me] in source source source Blood data data data by Automat ed count MICROSC See No Below_ No No Jul 15 OPIC informa informa informa 2012 tion in tion in tion in 7:26 AM source source source data data data Leukocy NEGATIV NL: No No No Jul 15 chito E NEGATIV informa informa informa 2012 [#/volu E tion in tion in tion in 7:26 AM me] in source source source Blood data data data by Automat ed count Erythro NEGATIV NL: No No No Apr cytes E NEGATIV informa informa informa 2012 [#/volu E tion in tion in tion in 7:26 AM me] in source source source Blood data data data by Automat ed count Epithel NEGATIV NL: No No No Apr 1 ial E NEGATIV informa informa informa 2012 cells E tion in tion in tion in 7:26 AM [#/area source source source ] in data data data Urine sedimen t by Microsc opy high power field Bacteri NEGATIV NL: No No No Jul 1 a E NEGATIV informa informa informa 2012 [#/area E tion in tion in tion in 7:26 AM ] in source source source Urine data data data sedimen t by Microsc opy high power field Mucus NEGATIV NL: No No No Apr 1 [Presen E NEGATIV informa informa informa 2012 ce] in E tion in tion in tion in 7:26 AM Urine source source source sedimen data data data t by Light microsc opy Yeast NEGATIV NL: No No No Jul 15 [Presen E NEGATIV informa informa informa 2013 ce] in E tion in tion in tion in 7:26 AM Unspeci source source source fied data data data specime n by Wet prepara tion Casts NEGATIV NL: No No No Jul 15 E NEGATIV informa informa informa 2012 E tion in tion in tion in 7:26 AM source source source data data data Crystal NEGATIV NL: No No No Jul 1 s E NEGATIV informa informa informa 2012 [type] E tion in tion in tion in 7:26 AM in source source source Urine data data data sedimen t by Light microsc opy METH OF C CATCH No No No No Jul 15 DIANE informa informa informa informa 2012 tion in tion in tion in tion in 7:26 AM source source source source data data data data CULTURE NOT No No No No Jul 15 SETUP INDIC informa informa informa informa 2013 tion in tion in tion in tion in 7:26 AM source source source source data data data data CBC W DIFF AUTOMATED Observa Value Referen Units Interpr Notes Date tion ce etation Range Leukocy 5.4 4.60 - K/uL No No Jul 15 chito 10.20 informa informa 2012 [#/volu tion in tion in 7:26 AM me] in source source Blood data data by Automat ed count Erythro 5.32 4.04 - M/uL No No Jul 15 cytes 6.13 informa informa 2012 [#/volu tion in tion in 7:26 AM me] in source source Blood data data by Automat ed count Hemoglo 14.2 12.20 - g/dL No No Jul 15 bin 18.10 informa informa 2012 [Mass/v tion in tion in 7:26 AM olume] source source in data data Blood Hematoc 44 37.70 - % No No Jul 15 rit 53.70 informa informa 2013 [Volume tion in tion in 7:26 AM source source Fractio data data n] of Blood by Automat ed count Erythro 82.0 80.0 - fL No No Jul 15 cyte 97.0 informa informa 2013 mean tion in tion in 7:26 AM corpusc source source ular data data volume [Entiti c volume] by Automat ed count Erythro 26.7 27.0 - pg Low No Apr 1 cyte 31.20 informa 2013 mean tion in 7:26 AM corpusc source ular data hemoglo bin [Entiti c mass] by Automat ed count Erythro 32.6 31.80 - g/dL No No Apr 1 cyte 35.40 informa informa 2013 mean tion in tion in 7:26 AM corpusc source source ular data data hemoglo bin concent ration [Mass/v olume] by Automat ed count Erythro 13.7 11.60 - % No No Apr 1 cyte 14.80 informa informa 2013 distrib tion in tion in 7:26 AM ution source source width data data [Ratio] by Automat ed count Platele 331 142 - K/uL No No Apr ts 424 informa informa 2013 [#/volu tion in tion in 7:26 AM me] in source source Blood data data by Automat ed count Lymphoc 40.3 10.0 - % No No Apr 1 ytes/10 50.0 informa informa 2013 0 tion in tion in 7:26 AM leukocy source source chito in data data Blood by Automat ed count Monocyt 5.0 0.0 - % No No Apr 1 es/100 12.0 informa informa 2013 leukocy tion in tion in 7:26 AM chito in source source Blood data data by Automat ed count Neutrop 51.6 37.0 - % No No Apr 1 hils.ba 80.0 informa informa 2013 nd tion in tion in 7:26 AM form/10 source source 0 data data leukocy chito in Blood by Manual count Eosinop 2.20 0.00 - % No No Apr 1 hils/10 7.00 informa informa 2013 0 tion in tion in 7:26 AM leukocy source source chito in data data Blood by Automat ed count Basophi 0.90 0.00 - % No No Apr 1 ls/100 2.50 informa informa 2013 leukocy tion in tion in 7:26 AM chito in source source Blood data data by Automat ed count Lymphoc 2.16 0.60 - K/uL No No Apr 1 ytes/10 3.40 informa informa 2013 0 tion in tion in 7:26 AM leukocy source source chito in data data Blood by Automat ed count Monocyt 0.27 0.00 - K/uL No No Apr 1 es/100 0.90 informa informa 2013 leukocy tion in tion in 7:26 AM chito in source source Blood data data by Automat ed count Neutrop 2.76 2.00 - K/uL No No Jul 1 hils.ba 6.90 informa informa 2013 nd tion in tion in 7:26 AM form/10 source source 0 data data leukocy chito in Blood by Manual count Eosinop 0.12 0.00 - K/uL No No Jul 1 hils/10 0.70 informa informa 2013 0 tion in tion in 7:26 AM leukocy source source chito in data data Blood by Automat ed count Basophi 0.05 0.00 - K/uL No No Jul 15 ls/100 0.20 informa informa 2013 leukocy tion in tion in 7:26 AM chito in source source Blood data data by Automat ed count Manual NOT No No No No Jul 15 Diff INDICAT informa informa informa informa 2013 ED tion in tion in tion in tion in 7:26 AM source source source source data data data data NM HIDA WITH EF Observa Value Referen Units Interpr Notes Date tion ce etation Range NM HIDA No No No No Jun 04 WITH informa informa informa informa 2013 EF tion in tion in tion in tion in 9:45 AM source source source source data data data data [facility]\.br\ [address]\.br \ [place] [address]\. br\\.br \ RADIOLO GY REPORT\ .br\ Name: HARLEEN Mitchell\.br\ Patient #: [id number] Stay Type: O/P\.br \ Age: 36 Room:\. br\ : 976 Sex: M\.br\ Orderin g Phys: ESQUIVEL WM MR#: [id number]\. br\ Family Phys: ESQUIVEL WM Pt Phone: [phone] /[phone]\. br\ Admitti ng Phys: ESQUIVEL WM\.br\ Unsig efraín Transcr iptions represe nt a prelimi nary report and do\.br\ not reflect a medical or legal documen t.\.b r\\.br\ \.br\ [place] [id number] COMPLET E:06/04 11:58 [facility] [id number]\. br\ (REASON FOR ABDOMEN : ABDOMIN AL PAIN\.b r\\.br\ CLINICA L HISTORY : Abdomin al pain.\. br\\.br \ COMPARI SON: Abdomin al ultraso und dated 05/24/12 .\.br\\ .br\ TECHNIQ UE: Followi ng the intrave nous adminis tration of 6.4 mCi of technet ium 99M Cholete c,\.br\ imaging of the abdomen in the anterio r project ion was obtaine d over a sixty minute time period. \.br\ 2.07 microgr ams of sincali de was then adminis tered intrave nously over five minutes followe d by\.br\ additio nal images of the abdomen over thirty minutes . Gallbla dder ejectio n fractio n was then\.b r\ calcula francy.\.b r\\.br\ FINDING S: The liver demonst rates prompt, homogen ous uptake of the radioph armaceu tical.\ .br\ Biliary tree activit y is identif ied at 4 minutes with gallbla dder activit y appeari ng at 7 minutes and\.br \ small bowel activit y appeari ng at 17 minutes . Followi ng Sincali de adminis tration , gallbla dder\.b r\ ejectio n fractio n is 31%. The patient experie nced mild abdomin al pain during his Sincali de\.br\ adminis tration .\.br\\ .br\ IMPRESS ION:\.b r\ Biliary dyskine jannie.\.b r\\.br\ Electro nically reviewe d and signed by:\.br \ TIKA TSE MD\.br\ RADIOLO GIST/ 13:14\. br\\.br \ Dictati on Date/Ti me: 06/04/12 15:19 Dictate d By: TIKA TSE MD RADIOLO GIST\.b r\ Transcr . Date/Ti me: 06/04/12 / 19:05 Transcr . Init.: amh\.br \\.br\ Copy for: ESQUIVEL KARISSA Singh via fax\.br \\.br\ US GALLBLADDER Observa Value Referen Units Interpr Notes Date tion ce etation Range US No No No No May 24 GALLBLA informa informa informa informa 2012 DDER tion in tion in tion in tion in 8:07 AM source source source source data data data data [facility]\.br\ [address]\.br \ [place] [address]\. br\\.br \ RADIOLO GY REPORT\ .br\ Name: HARLEEN Mitchell\.br\ Patient #: [id number] Stay Type: O/P\.br \ Age: 36 Room:\. br\ : 976 Sex: M\.br\ Orderin g Phys: ESQUIVEL WM MR#: [id number]\. br\ Family Phys: ESQUIVEL WM Pt Phone: [phone] /[phone]\. br\ Admitti ng Phys: ESQUIVEL WM\.br\ Unsig efraín Transcr iptions represe nt a prelimi nary report and do\.br\ not reflect a medical or legal documen t.\.b r\\.br\ \.br\ US GALLBLA DDER [id number] COMPLET E:05/24 08:38 LAD [id number]\. br\ (REASON FOR ABDOMEN : ABDOMIN AL PAIN\.b r\\.br\ HISTORY /INDICA TIONS: Post prandia l abdomin al pain and fullnes s. History of appende ctomy.\ .br\\.b r\ No compari sons. The liver, gallbla dder, pancrea s, and right kidney have a normal appeara nce. I\.br\ see no free fluid. There is no intra or extrahe patic ductal dilatat ion. The common duct measure s 4\.br\ mm. The patient was somewha t tender to examina tion of the right upper quadran t.\.br\ \.br\ IMPRESS ION:\.b r\ Normal ultraso und of the right upper quadran t other than some probe tendern ess.\.b r\\.br\ Electro nically reviewe d and signed by:\.br \ JOSE SALINAS MD\.br\ RADIOLO GIST/ 17:23\. br\\.br \ Dictati on Date/Ti me: 05/24/12 11:04 Dictate d By: JOSE SALINAS MD RADIOLO GIST\.b r\ Transcr . Date/Ti me: 05/24/12 / 14:19 Transcr . Init.: amh\.br \\.br\ Copy for: ALVIN HANCOCK M.D. via fax\.br \\.br\
--- OUTSIDE RECORDS SUMMARY | 2016-11-28 19:08 | External Medical Summary Rpt ---
Author Author JAYLA Deshpande, [employer] Organization [employer] Address Unknown Phone Unavailable Results Cobalamin (Vitamin B12) [Mass/volume] in Serum Observa Value Referen Units Interpr Notes Date tion ce etation Range Cobalamin 211 - 946 pg/mL No Performed Nov 09 (Vitamin informati at: CB 2016 8:24 B12) on in - [facility] AM [Mass/vol source ume] in data [place] [address] Serum 0 [place], [place] [id number] Penciller: Cruz Cruz PhD, Phone: [phone] Folate [Mass/volume] in Serum or Plasma [...] AM ume] in source Serum or data [facility] Plasma [address] [place], [place] [id number] Penciller: Karissa Arguello MD, Phone: [phone] Testoster 264.0 - ng/dL Low Please Nov 09 one 916.0 note 2016 8:24 [Mass/vol reference AM ume] in interval Serum or Plasma changeT his [facility] LC/MS-MS method is currently certified by [facility] Hormone Standardi zation Program (HoSt). Adult malerefer ence interval is based on a populatio n of healthyno nobese males (BMI <30) between 19 and 39 years old.Isabel lugo et.al. JCEM 2017,102; 0164-7314 . PMID: [id number]. Performed at: - [facility] [address] [place], [place] [id number] Penciller: Karissa Arguello MD, Phone: [phone] 25-Hydroxyvitamin D [Mass/volume] in Serum or Plasma Observa Value Referen Units Interpr Notes Date tion ce etation Range 25-Hydrox 30.0 - ng/mL No Vitamin D Nov 09 yvitamin 100.0 inform2016 8:24 D on in deficienc AM [Mass/vol source y has ume] in data been Serum or defined Plasma by the [place] [facility] [place] e and an Endocrine Society practice guideline as alevel of serum 25-OH vitamin D less than 20 ng/mL (1,2).The Endocrine Society went on to further define vitamin Dinsuffic iency as a level between 21 and 29 ng/mL (2).1. IOM (Institut e of Medicine) . 2010. Dietary reference intakes for calcium and D. [facility] Center[facility] morejon [place]: [employer].2. Porsha MF, Nenita GOULD, Clyde Mehta FRANCOIS, et al.Evalua tion, treatment , and preventio n of vitamin Ddeficien cy: an Endocrine Society clinical practiceg uideline. JCEM. 2010; 96(7):191 1-30.Perf ormed at: - [facility] [id number] Penciller: Cruz Cruz PhD, Phone: [phone] Hemoglobin A1c in Blood Observa Value [...] source source data data data data WITHOUT [facility]\.br\ [address]\.br \ [place] [address]\. br\\.br \ RADIOLO GY REPORT\ .br\ Name: HARLEEN Mitchell\.br\ Patient #: [id number] Stay Type: O/P\.br \ Age: 36 Room:\. br\ : 976 Sex: M\.br\ Orderin g Phys: JOSÉ MIGUEL GARY MR#: [id number]\. br\ Family Phys: ESQUIVEL WM Pt Phone: [phone] /[phone]\. br\ Admitti ng Phys: JOSÉ MIGUEL LAR\.br \ Unsig efraín Transcr iptions represe nt a prelimi nary report and do\.br\ not reflect a medical or legal documen t.\.b r\\.br\ CT ABD and PELVIS WITH [place] WIT [id number] COMPLET E:09/03 07:56 [id number]\. br\ Diagnos is: ABDOMIN AL PAIN\.b r\\.br\ [...] . Date/Ti me: 09/03/12:33 Transcr . Init.: [facility]\.br \\.br\ Copy for: JOSÉ MIGUEL TAYLOR M.D. via fax\.br \ Copy for: ALVIN [...] source source source data data data data [facility]br\ [address]\.br \ [place] [address]\. br\\.br \ RADIOLO GY REPORT\ .br\ Name: HARLEEN Mitchell\.br\ Patient #: [id number] Stay Type: O/P\.br \ Age: 36 Room:\. br\ : 976 Sex: M\.br\ Orderin g Phys: ESQUIVEL WM MR#: [id number]\. br\ Family Phys: ESQUIVEL WM Pt Phone: [phone] /[phone]\. br\ Admitti ng Phys: ESQUIVEL WM\.br\ Unsig efraín Transcr iptions represe nt a prelimi nary report and do\.br\ not reflect a medical or legal documen t.\.b r\\.br\ \.br\ [place] [id number] COMPLET E:06/04 11:58 [facility] 87725\. br\ (REASON FOR ABDOMEN : ABDOMIN AL [...] source source source data data data data [facility]\.br\ [address]\.br \ [place] [address]\. br\\.br \ RADIOLO GY REPORT\ .br\ Name: HARLEEN Mitchell\.br\ Patient #: [id number] Stay Type: O/P\.br \ Age: 36 Room:\. br\ : 976 Sex: M\.br\ Orderin g Phys: ESQUIVEL WM MR#: [id number]\. br\ Family Phys: ESQUIVEL WM Pt Phone: [phone] /[phone]\. br\ Admitti ng Phys: ESQUIVEL WM\.br\ Unsig efraín Transcr iptions represe nt a prelimi nary report and do\.br\ not reflect a medical or legal documen t.\.b r\\.br\ \.br\ US GALLBLA DDER [id number] COMPLET E:05/24 08:38 LAD 68043\. br\ (REASON FOR ABDOMEN : ABDOMIN AL [...]
--- NOTE | 2016-11-28 19:44 | RADIOLOGY REPORT PS360 ---
CT HEAD W/O CONTRAST HISTORY: DIZZINESS ORDERING PHYSICIAN: Cesar Campbell MD PATIENT AGE: 41 years COMPARISON: 01/03/2015 TECHNIQUE: Axial images obtained without contrast. Brain and bone windows reviewed. FINDINGS: No midline shift, mass effect, intracranial hemorrhage, hydrocephalus, or extra-axial fluid collection is evident. The calvarium has an unremarkable appearance. No mastoid effusion. The visualized paranasal sinuses are unremarkable. IMPRESSION: Negative CT head without contrast. No acute finding.
[2016-11-28 19:48] LABS: BUN 18 mg/dL (7-18)
[2016-11-28 19:51] LABS: GFR (ESTIMATED) 52 ML/MIN (>60)
--- NOTE | 2016-11-28 20:19 | Emergency Room Report ---
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 N Clinical Suspician of Infection? N Mental Status: 1 - Regular (Normal Baseline) Sepsis Risk:Low Sepsis Risk Have you (or family members/close friends) recently traveled outside the [place]? N If Yes, where/when: Have you had exposure to infectious disease within the past month? N TB? Other? 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 #30 DULOXETINE HCL (Duloxetine) 60 MG PO DAILY #30 Amitriptyline Hcl (Amitriptyline) 50 MG PO QHS #30 CHOLECALCIFEROL (VITAMIN D3) (Vitamin D) 2,000 PO DAILY #30 Hydroxyzine Pamoate 50 MG PO DAILY #30 Lisinopril 10 MG PO DAILY Metoprolol Tartrate (Metoprolol) 25 MG PO DAILY Pantoprazole Sodium (Protonix 40MG TAB) 40 MG PO DAILY History Medical History General CAD? No Angina: No ID: No Hypertension? Yes Hyperlipidemia? No CHF? No DVT? No PE? No COPD? No Asthma? No Anemia? No GERD? No Gastric ulcers? No GI Bleed? No Hernia? No Thyroid Problems? No Hypothyroidism? No CVA? No Seizures? No Diabetes? No Insulin Dependent: No Insulin Pump: No Home FSBS? No Renal Insuffiency? No End Stage Renal Disease? No UTI? No Stones? No BPH? No GB Disease: Yes Nephritic Syndrome? No Asplenia? No Hepatitis? No Sickle Cell Disease? No Arthritis? No Migraines? Yes Cataracts? No Glaucoma? No MRSA? No HIV? No TB? No Anxiety? No Depression? No Cancer? Yes Site: THROAT More? No Immunization Hx DT/Tetanus Unknown Flu [id number] Flu Season Pneumonia Refuses Surgical Hx Previous Surgery?Y GALLBLADDER HERNIA REPAIR POLYP REMOVAL Family History Family Hx Diabetes Yes CAD Yes Hypertension Yes Hyperlipidemia Yes Cancer Yes TB No Social History Smoking Hx Smoker: Never Smoker Tobacco: No Alcohol Alcohol: No Drugs none Review of Systems All Other Systems Reviewed and Negative Constitutional denies fever Eyes denies drainage ENT denies: ear pain, epistaxis, throat pain. Respiratory see HPI, cough, shortness of breath, denies wheezing Cardiovascular denies chest pain, denies palpitations, denies syncope Gastrointestinal denies abdominal pain, denies diarrhea, denies vomiting Genitourinary denies: dysuria, frequency, hesitancy, hematuria. Musculoskeletal denies back pain, denies joint pain, denies joint swelling, denies neck pain Skin denies rash Psychiatric/Neurological see HPI, denies headache, denies seizure, other Physical Exam Vital Signs Vital Signs Date Time Temp Pulse Resp B/P Pulse O2 O2 Flow FiO2 Ox Delivery Rate 11/28 2218 89 16 140/70 96 11/28 2036 89 16 138/76 96 11/28 1848 98.5 111 16 138/76 98 - WBC >12,000 or <4,000 or 10% bands? 2 or more SIRS Criteria Met? B/P:138/76 MAP:96 Creatinine >2.0? UA output<0.5ml/kg/hr for 2 hrs? Platelet count >100,000? Lactate >2.0mmol/1? INR >1.2 or PTT > than 60 sec? Evidence of Organ Dysfunction? Provider documented clinical suspician of infection? N Sepsis Criteria Count: 1 Sepsis Risk: Low Sepsis Risk General Appearance no apparent distress Eye Exam - bilateral eye PERRL, bilateral eye EOMI Ear, Nose, Throat normal ENT inspection Neck supple Respiratory Status No: respiratory distress. Lung Sounds bilateral: decreased breath sounds. 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 No Results/Orders Laboratory Tests 11/28/161854: B-Natriuretic Peptide 11 11/28/161854: Sodium 139, Potassium 4.0, Chloride 104, Carbon Dioxide 24, BUN 18, Creatinine 1.5 H, Estimated Creat Clear 91, Estimated GFR (MDRD) 52, Glucose 108 H, Calcium 9.1, Total Bilirubin 0.2, AST 17, ALT 34, Alkaline Phosphatase 84, Creatine Kinase 164, CK-MB (CK-2) Rel Index 0.3, CK and CKMB Interp < 0.5, Troponin I < 0.02, Total Protein 7.5, Albumin 3.7, Globulin 3.8 H, Albumin/ Globulin Ratio 1.0 L, D-Dimer < 100, WBC 10.0, RBC 4.61, Hgb 13.1 L, Hct 39.1 L, MCV 84.8, RDW 13.6, Plt Count 357, MPV 8.2, Gran % 54.6, Gran # 5.5, Lymphocytes % 39.6, Monocytes % 3.6, Eosinophils % 1.6, Basophils % 0.6, Lymphocytes # 4.0, Monocytes # 0.4, Eosinophils # 0.2, Basophils # 0.1, PUBS MCHC 33.6, MCH 28.5 Current Medication Orders Sig/Batool Start time Last Medication Dose Route Stop Time Status Admin Furosemide 0 .STK-MED ONE 11/29 2035 DC .ROUTE Furosemide 40 MG ONCE ONE 11/28 2029 DC 11/28 IV 11/28 Albuterol/Ipratropium 0 .STK-MED ONE 11/28 1902 DC INH Albuterol/Ipratropium 3 ML ONCE ONE 11/28 1899 DC 11/28 INH 11/28 Sodium Chloride 10 ML PRN PRN 11/28 1899 AC IV 11/29 185 Orders Procedure Date/time Status DIET-NOTHING BY MOUTH 11/29 B Active D-DIMER 11/28 2022 Complete BRAIN NATRIURETIC PEPTIDE 11/28 2016 Complete ELECTROCARDIOGRAM REQUEST 11/28 1857 Active RT REQUEST DUONEB 11/[address] HEAD REQ 11/28 1857 Complete CHEST(2 VIEWS-NOT PORTABLE) 11/28 1857 Active IV SALINE LOCK 11/28 1857 Active CBC WITH AUTO DIFF 11/28 1857 Complete CARDIAC ENZYMES 11/28 1857 Complete CHEM 12 PROFILE 11/28 1857 Complete 12 LEAD EKG-DIONICIO (INITIAL) 11/28 UNK Active 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 of ischemic chgs XRAY/CT/US XRAY/CT/US 1 XRAY chest XR interpretation by reviewed by me Xray Results normal/NAD XRAY/CT/US [address] interpretation by discussed w/radiologist Time results known: 2217 CT Results normal/NAD Departure Departure Time of Disposition 2217 Disposition DC Home or Self Care(routine) Clinical Impression Primary Impression: Acute dyspnea Secondary Impressions: Vertigo Condition STABLE Referrals Deana MAHAN,Devyn Wells (Family) Patient Instructions DI for Dizziness-Nonvertigo Additional Instructions see pcp in am for close follow up Discharge Counseling Counseled pt/family regarding diagnosis, test results, follow up needs ED Critical Care Critical Care No at [id number]
--- NOTE | 2016-11-28 20:19 | Emergency Room Report ---
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 N Clinical Suspician of Infection? N Mental Status: 1 - Regular (Normal Baseline) Sepsis Risk:Low Sepsis Risk Have you (or family members/close friends) recently traveled outside the [place]? N If Yes, where/when: Have you had exposure to infectious disease within the past month? N TB? Other? 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 #30 DULOXETINE HCL (Duloxetine) 60 MG PO DAILY #30 Amitriptyline Hcl (Amitriptyline) 50 MG PO QHS #30 CHOLECALCIFEROL (VITAMIN D3) (Vitamin D) 2,000 PO DAILY #30 Hydroxyzine Pamoate 50 MG PO DAILY #30 Lisinopril 10 MG PO DAILY Metoprolol Tartrate (Metoprolol) 25 MG PO DAILY Pantoprazole Sodium (Protonix 40MG TAB) 40 MG PO DAILY History Medical History General CAD? No Angina: No [place]: No Hypertension? Yes Hyperlipidemia? No CHF? No DVT? No PE? No COPD? No Asthma? No Anemia? No GERD? No Gastric ulcers? No GI Bleed? No Hernia? No Thyroid Problems? No Hypothyroidism? No CVA? No Seizures? No Diabetes? No Insulin Dependent: No Insulin Pump: No Home FSBS? No Renal Insuffiency? No End Stage Renal Disease? No UTI? No Stones? No BPH? No GB Disease: Yes Nephritic Syndrome? No Asplenia? No Hepatitis? No Sickle Cell Disease? No Arthritis? No Migraines? Yes Cataracts? No Glaucoma? No MRSA? No HIV? No TB? No Anxiety? No Depression? No Cancer? Yes Site: THROAT More? No Immunization Hx DT/Tetanus Unknown Flu [id number] Flu Season Pneumonia Refuses Surgical Hx Previous Surgery?Y GALLBLADDER HERNIA REPAIR POLYP REMOVAL Family History Family Hx Diabetes Yes CAD Yes Hypertension Yes Hyperlipidemia Yes Cancer Yes TB No Social History Smoking Hx Smoker: Never Smoker Tobacco: No Alcohol Alcohol: No Drugs none Review of Systems All Other Systems Reviewed and Negative Constitutional denies fever Eyes denies drainage ENT denies: ear pain, epistaxis, throat pain. Respiratory see HPI, cough, shortness of breath, denies wheezing Cardiovascular denies chest pain, denies palpitations, denies syncope Gastrointestinal denies abdominal pain, denies diarrhea, denies vomiting Genitourinary denies: dysuria, frequency, hesitancy, hematuria. Musculoskeletal denies back pain, denies joint pain, denies joint swelling, denies neck pain Skin denies rash Psychiatric/Neurological see HPI, denies headache, denies seizure, other Physical Exam Vital Signs Vital Signs Date Time Temp Pulse Resp B/P Pulse O2 O2 Flow FiO2 Ox Delivery Rate 11/28 2218 89 16 140/70 96 11/28 2036 89 16 138/76 96 11/28 1848 98.5 111 16 138/76 98 - WBC >12,000 or <4,000 or 10% bands? 2 or more SIRS Criteria Met? B/P:138/76 MAP:96 Creatinine >2.0? UA output<0.5ml/kg/hr for 2 hrs? Platelet count >100,000? Lactate >2.0mmol/1? INR >1.2 or PTT > than 60 sec? Evidence of Organ Dysfunction? Provider documented clinical suspician of infection? N Sepsis Criteria Count: 1 Sepsis Risk: Low Sepsis Risk General Appearance no apparent distress Eye Exam - bilateral eye PERRL, bilateral eye EOMI Ear, Nose, Throat normal ENT inspection Neck supple Respiratory Status No: respiratory distress. Lung Sounds bilateral: decreased breath sounds. 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 No Results/Orders Laboratory Tests 11/28/161854: B-Natriuretic Peptide 11 11/28/161854: Sodium 139, Potassium 4.0, Chloride 104, Carbon Dioxide 24, BUN 18, Creatinine 1.5 H, Estimated Creat Clear 91, Estimated GFR (MDRD) 52, Glucose 108 H, Calcium 9.1, Total Bilirubin 0.2, AST 17, ALT 34, Alkaline Phosphatase 84, Creatine Kinase 164, CK-MB (CK-2) Rel Index 0.3, CK and CKMB Interp < 0.5, Troponin I < 0.02, Total Protein 7.5, Albumin 3.7, Globulin 3.8 H, Albumin/ Globulin Ratio 1.0 L, D-Dimer < 100, WBC 10.0, RBC 4.61, Hgb 13.1 L, Hct 39.1 L, MCV 84.8, RDW 13.6, Plt Count 357, MPV 8.2, Gran % 54.6, Gran # 5.5, Lymphocytes % 39.6, Monocytes % 3.6, Eosinophils % 1.6, Basophils % 0.6, Lymphocytes # 4.0, Monocytes # 0.4, Eosinophils # 0.2, Basophils # 0.1, PUBS MCHC 33.6, MCH 28.5 Current Medication Orders Sig/Batool Start time Last Medication Dose Route Stop Time Status Admin Furosemide 0 .STK-MED ONE 11/29 2035 DC .ROUTE Furosemide 40 MG ONCE ONE 11/28 2029 DC 11/28 IV 11/28 Albuterol/Ipratropium 0 .STK-MED ONE 11/28 1902 DC INH Albuterol/Ipratropium 3 ML ONCE ONE 11/28 1899 DC 11/28 INH 11/28 Sodium Chloride 10 ML PRN PRN 11/28 1899 AC IV 11/29 185 Orders Procedure Date/time Status DIET-NOTHING BY MOUTH 11/29 B Active D-DIMER 11/28 2022 Complete BRAIN NATRIURETIC PEPTIDE 11/28 2016 Complete ELECTROCARDIOGRAM REQUEST 11/28 1857 Active RT REQUEST DUONEB 11/[address] HEAD REQ 11/28 1857 Complete CHEST(2 VIEWS-NOT PORTABLE) 11/28 1857 Active IV SALINE LOCK 11/28 1857 Active CBC WITH AUTO DIFF 11/28 1857 Complete CARDIAC ENZYMES 11/28 1857 Complete CHEM 12 PROFILE 11/28 1857 Complete 12 LEAD EKG-DIONICIO (INITIAL) 11/28 UNK Active 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 of ischemic chgs XRAY/CT/US XRAY/CT/US 1 XRAY chest XR interpretation by reviewed by me Xray Results normal/NAD XRAY/CT/US [address] interpretation by discussed w/radiologist Time results known: 2217 CT Results normal/NAD Departure Departure Time of Disposition 2217 Disposition DC Home or Self Care(routine) Clinical Impression Primary Impression: Acute dyspnea Secondary Impressions: Vertigo Condition STABLE Referrals Deana MAHAN,Devyn Wells (Family) Patient Instructions DI for Dizziness-Nonvertigo Additional Instructions see pcp in am for close follow up Discharge Counseling Counseled pt/family regarding diagnosis, test results, follow up needs ED Critical Care Critical Care No at [id number]
[2016-11-28 22:26] VITALS: BP 125/66
--- NOTE | 2016-11-29 09:52 | RADIOLOGY REPORT PS360 ---
CHEST(2 VIEWS-NOT PORTABLE) HISTORY: Shortness of breath DIZZINESS ORDERING PHYSICIAN: Cesar Campbell MD PATIENT AGE: 41 years COMPARISON: 01/03/2015 FINDINGS: There is eventration along the posterior medial aspect of the left hemidiaphragm with atelectatic changes in the left lung base. Unremarkable cardiovascular structures. No lobar consolidation or collapse and no significant change from 01/03/2015. No acute bony anomalies. IMPRESSION: 1. No change with no acute finding. 2. Eventration of the left hemidiaphragm with underlying atelectatic change
== END 2016-11-28 22:32 | disposition home or self-care (01) ==
LOC: ER 18:32
PROVIDERS: Emergency Medicine
DX: R06.09 Other forms of dyspnea (principal); I10 Essential (primary) hypertension; R42 Dizziness and giddiness

== ENCOUNTER → 2017-01-26 | Outpatient (CLI) | payer MEDICAID ==
[~2017-01-26] MED LIST changes: +AMITRIPTYLINE 550 MG PO; +DULOXETINE60 MG PO; +HYDROXYZINE PAM50 MG PO; +TOPIRAMATE200 MG PO; +TRAZADONE HYDR100 MG PO; +VITAMIN D32000 IU PO
[2017-01-26 18:14] LABS: HEMOGLOBIN 13.6 g/dL (14.1-18.0); LYMPH # 3.6 K/mm3 (0.7-4.5); LYMPH % 44.4 % (10-50)
[2017-01-26 18:36] LABS: BUN 14 mg/dL (7-18)
[2017-01-26 18:37] LABS: GFR (ESTIMATED) 52 ML/MIN (>60)
== END ==
LOC: LAB 17:57
PROVIDERS: Emergency Medicine
DX: R53.83 Other fatigue (principal)

== ENCOUNTER → 2017-02-05 | Outpatient (CLI) | payer MEDICAID ==
--- NOTE | 2017-02-08 15:20 | RADIOLOGY REPORT PS360 ---
History and Indications: Hypertension, hyperlipidemia, family history, chest pain, shortness of breath. Procedure: Patient exercised on Calos protocol 8 minutes and 20 seconds, resting heart rate was 86 bpm resting blood pressure 1 42/82, with exercise maximum heart rate achieved was 180 beats per which is equal to 101% of the maximum predicted heart rate and a blood pressure was 180/89. Test was started due to shortness of breath and fatigue, patient has mildly increased pretest chest pain and left arm pain with exercise. Patient has good exercise capacity achieved 10.1mets of workload on treadmill, the blood pressure response to exercise was adequate. Electrocardiogram: Resting electrocardiogram showed sinus rhythm rightward axis, nonspecific ST-T changes, with exercise there is less than 1.[address] segment depression noted from the baseline EKG. The EKG portion of the exercise Myoview is nondiagnostic secondary to baseline abnormal EKG. Cardiac stress and resting SPECT images: Cardiac stress and rest SPECT images were obtained using technetium 99 Myoview 10.3 mCi at rest and 31.1 mCi at stress, gated SPECT further analysis of segmental wall motion and calculation of the ejection fraction also done. Cardiac stress and rest images show uniform myocardial activity without any segmental perfusion abnormality, computer derived ejection fraction is over 65% with no obvious regional wall motion abnormality, right ventricle is normal size and contractility. Conclusion: 1. The EKG portion of the exercise Myoview is nondiagnostic secondary to baseline abnormal EKG, patient has good exercise capacity achieved 10.1mets of workload on treadmill, the blood pressure response to exercise was adequate, patient has mild increase in pre test chest pain and left arm pain with exercise. 2. No obvious scintigraphic evidence of reversible ischemia seen, computer derived ejection fraction is over 65% with no obvious regional wall motion abnormality, right ventricle is normal size and contractility.
== END ==
LOC: RAD 12:00
DX: R07.9 Chest pain, unspecified (principal); I10 Essential (primary) hypertension; E78.5 Hyperlipidemia, unspecified
CPT/HCPCS: A9502

== ENCOUNTER 2017-03-15 07:25 | Day surgery (SDC) | payer MEDICAID ==
[~2017-03-15] VITALS: Ht 170.2 cm; Wt 99.8 kg
--- NOTE | 2017-03-15 08:31 | Operative Note ---
Surgeon/Diagnoses Surgeon/Closing Machine Operator(s) Date of procedure: 03/15/17 Surgeon: MD Stephen Agarwal Diagnoses Pre-op diagnosis: Gastroesophageal reflux Post-op diagnosis Gastroesophageal reflux Distal esophageal and proximal gastric body tortuosity Gastritis Possible paraesophageal hernia Procedure Procedure Procedure: Esophagogastroduodenoscopy biopsy Indications: BACILIO CANSECO is a 41 year-old Male with a history of gastroesophageal reflux. Findings: Fairly significant distal esophageal proximal gastric body tortuosity Patchy inflammation Possible paraesophageal hernia Procedure Description: After informed consent was obtained, the patient was taken to the endoscopy suite. Monitored anesthesia care ensued after he was transferred to the LEFT lateral decubitus position. The gastroscope was advanced. Tortuosity of the distal esophagus and proximal gastric body made entering the stomach very difficult. Once the stomach was entered evaluation revealed inflammation of the mid gastric body. Fairly severe tortuosity made anatomic evaluation difficult and the possibility of a paraesophageal hernia was noted. Mid gastric body biopsy was obtained and the gastroscope was removed. EBL (ml): 1 Anesthesia: Monitored anesthesia care Complications: No immediate Specimens: Mid gastric body Disposition Disposition: Stable to recovery. UGI series will be ordered for better evaluation with regard to tortuosity and possible herniation. He will follow up in one week. at 0831
--- NOTE | 2017-03-15 10:32 | RADIOLOGY REPORT PS360 ---
UGI SERIES W/ AIR CLINICAL INDICATION: REFLUX, TORTUROUS ESO[PHAGUS, ? ESOPHAGEAL HERNIA ORDERING PHYSICIAN: IRINA AGUILAR MD PATIENT AGE: 41 years Fluoroscopy time: 3 minutes and 40 seconds COMPARISON: None FINDINGS: The esophagus has an unremarkable appearance. No evidence of esophageal obstruction. Contrast does flow immediately into the stomach. No hernias are evident. There was some gastroesophageal reflux noted. There is mesentero-axial rotation of the stomach. There is no evidence of obstruction of the esophagus or of the stomach. The body of the stomach is rotated superiorly superior to the fundus of the stomach. The duodenal bulb is in the expected location. No evidence of ulcer or mass. IMPRESSION: 1. 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 No evidence of obstruction. This is felt to be a long-standing process and may been present dating back to an older chest x-ray of 01/05/2015. 2. Mild gastroesophageal reflux.
[2017-03-15 13:39] VITALS: BP 95/54
== END 2017-03-15 09:33 ==
LOC: SDC 07:25
PROVIDERS: Surgery
PROC: 0DB68ZX Excision of Stomach, Via Natural or Artificial Opening Endoscopic, Diagnostic (ICD-10-PCS; principal; 2017-03-15 08:00)
DX: K21.9 Gastro-esophageal reflux disease without esophagitis (principal); K29.70 Gastritis, unspecified, without bleeding

== ENCOUNTER → 2017-03-27 | Outpatient (CLI) | payer MEDICAID ==
--- NOTE | 2017-03-28 09:30 | RADIOLOGY REPORT PS360 ---
CT ABD PELVIS W/O CONTRAST CLINICAL INDICATION: GASTRIC MALROTATION ORDERING PHYSICIAN: IRINA AGUILAR MD PATIENT AGE: 41 years COMPARISON: Upper GI 03/15/2017 TECHNIQUE: Axial images obtained with sagittal and coronal reformats. PROCEDURE: Oral Contrast: Redicat IV Contrast: None . FINDINGS: There is a left-sided Bochdalek hernia. This contains most of the stomach. There is mesenterica-axial rotation of the stomach within a Bochdalek hernia. The body of the stomach is superior to the fundus of the stomach. There is no evidence of esophageal obstruction. There is no evidence of gastric outlet obstruction. There has been a prior cholecystectomy. No ductal dilatation. Spleen, pancreas, and adrenal glands are unremarkable. No renal calculi or hydronephrosis. No ureteral calculi. There is a small umbilical hernia containing fat. No evidence of appendicitis, diverticulitis, or intestinal obstruction or free air. No pelvic mass or focal inflammatory change evident. There is a limbus vertebra at T12. No acute bony anomalies. IMPRESSION: 1. Left-sided Bochdalek hernia containing the stomach. 2. Mesentero-axial rotation of the stomach with NO evidence of acute volvulus, esophageal, or gastric outlet obstruction.
== END ==
LOC: RAD 07:56
DX: K31.89 Other diseases of stomach and duodenum (principal)